=== PATIENT | male | born 1955 | race Caucasian/White ===

== ENCOUNTER 2016-12-27 23:46 | Inpatient (IN) ==
--- NOTE | 2016-12-27 23:56 | Emergency Department Note ---
Disposition Clinical Impression: Chest pain, Unstable angina, Afib Disposition: Admitted As Inpatient Condition: Fair Chest Pain HPI - General Chief Complaint: ED Chest Pain Stated Complaint: chest pain Time Seen by Provider: 12/27/16 23:50 Source: patient, EMS Mode of arrival: EMS Limitations: no limitations Vital Signs Reviewed: Yes Nursing Notes Reviewed: Yes - History of Present Illness HPI Narrative: 61-year-old male with history of hypertension, diabetes, triple bypass back in 2002 presents for evaluation of chest pain. Patient notes he was nonexertional started approximately 8:00 this evening. Notes that he had a full dose aspirin and took 3 of his nitroglycerin with some improvement. Notes that he is continuing to have chest pain.He has a pressure elevated and sitting on his chest with radiation as left arm. Denies any dyspnea. Does note some nausea but no vomiting or diaphoresis. Denies fevers or cough. - Related Data Home Medications Medication Instructions Recorded Confirmed Albuterol Sulfate [Albuterol 2 puff IH DAILY PRN 12/30/15 12/31/15 Inhaler] Aspirin [Lo-Dose Aspirin EC] 81 mg PO DAILY 12/30/15 12/31/15 BuPROPion SR (12 HR) [Wellbutrin 150 mg PO BID 12/30/15 12/31/15 SR] Canagliflozin [Invokana] 300 mg PO DAILY 12/30/15 12/31/15 Carbidopa/Levodopa 25/100 [Sinemet 1 each PO BID 12/30/15 12/31/15 25/100] Clopidogrel [Plavix] 75 mg PO DAILY 12/30/15 12/31/15 Fenofibrate [Lofibra] 160 mg PO DAILY 12/30/15 12/31/15 Fluticasone Propionate Nasal 50 mcg IH BID 12/30/15 12/31/15 [Flonase] Folic Acid 1 mg PO DAILY 12/30/15 12/31/15 Gabapentin [Neurontin] 1,200 mg PO TID 12/30/15 12/31/15 HYDROcodone/Acet 5/325 mg [[place] 1 tab PO TID PRN 12/30/15 12/31/15 5-325 mg] Isosorbide MONOnitrate (24 HR) 60 mg PO DAILY 12/30/15 12/31/15 [Imdur] Lisinopril [Zestril] 20 mg PO DAILY 12/30/15 12/31/15 Lutein 20 mg PO DAILY 12/30/15 12/31/15 Metoprolol [Lopressor] 100 mg PO BID 12/30/15 12/31/15 Montelukast [Singulair] 10 mg PO HS 12/30/15 12/31/15 Multivitamin [Multivitamins] 1 cap PO DAILY 12/30/15 12/31/15 Niacin [Niaspan] 500 mg PO BID 12/30/15 12/31/15 Nitroglycerin [Nitrostat] 0.4 mg SL Q5M PRN 12/30/15 12/31/15 Pramipexole [Mirapex] 1 mg PO TID 12/30/15 12/31/15 Ranolazine [Ranexa] 1,000 mg PO BID 12/30/15 12/31/15 Rivaroxaban [Xarelto] 20 mg PO DAILY 12/30/15 12/31/15 Sertraline [Zoloft] 100 mg PO DAILY 12/30/15 12/31/15 diazePAM [Valium] 2 mg PO HS 12/30/15 12/31/15 hydroCHLOROthiazide 25 mg PO DAILY 12/30/15 12/31/15 [Hydrochlorothiazide] Previous Rx's Medication Instructions Recorded Insulin ASPART [Novolog Flexpen] 0 unit SQ ACHS #0 12/31/15 Insulin DETEMIR [Levemir Flextouch] 25 unit SQ BID #0 12/31/15 Levofloxacin [Levaquin] 250 mg PO DAILY #5 tablet 12/31/15 Rosuvastatin [Crestor] 40 mg PO HS #30 tablet 12/31/15 metFORMIN [Glucophage] 500 mg PO BIDWM #60 tablet 12/31/15 Amoxicillin 875 mg PO BID #20 tablet 11/20/16 Azithromycin [Zithromax] 0 tab PO DAILY #6 tablet 11/20/16 Promethazine/Codeine 5 ml PO Q8HR PRN #120 ml 11/20/16 [Phenergan/Codeine] Allergies Allergy/AdvReac Type Severity Reaction Status Date / Time amlodipine [From Norvasc] AdvReac See Verified 12/30/15 19:09 Comments loratadine [From Claritin] AdvReac See Verified 08/11/15 10:05 Comments All systems ED: reviewed and negative except as stated. Constitutional: Reports: as per HPI. Denies: fever Eyes: Reports: as per HPI ENT ED: Reports: as per HPI Cardiovascular: Reports: as per HPI, chest pain Respiratory: Reports: as per HPI. Denies: cough, dyspnea Gastrointestinal: Reports: as per HPI, nausea. Denies: abdominal pain Genitourinary: Reports: as per HPI Musculoskeletal: Reports: as per HPI Integumentary: Reports: as per HPI Neurological: Reports: as per HPI Psychiatric: Reports: as per HPI Endocrine: Reports: as per HPI Hematological/Lymphatic: Reports: as per HPI Allergic/Immunologic: Reports: as per HPI Chest Pain PMH - Past Medical History Medical history: Reports: arthritis, asthma, atrial fibrillation, coronary artery disease, diabetes, hyperlipidemia, hypertension, myocardial infarction, other Surgical history: Reports: angioplasty/stent, coronary bypass (CABG), herniorrhaphy, knee replacement, orthopedic, other, other Psychiatric history: Reports: depression - Social History Smoking Status: Never smoker Alcohol use: Reports: occasionally Drug use: Reports: none Physical Exam - General Limitations: no limitations General appearance: alert, in no apparent distress - Head Head exam: atraumatic, normocephalic, normal inspection - Eye Eye exam: Present: normal appearance, PERRL, EOMI - ENT ENT exam: normal exam, mucous membranes moist - Neck Neck exam: Present: normal inspection - Chest Chest inspection: Present: normal inspection, symmetric chest wall rise - Respiratory Respiratory exam: Present: normal lung sounds bilaterally. Absent: respiratory distress - Cardiovascular Cardiovascular exam: Present: regular rate, normal rhythm. Absent: systolic murmur - Abdominal Exam Abdominal exam: Present: soft, Non-Tender. Absent: guarding, rebound - Extremities Exam Extremities exam: Present: normal inspection. Absent: pedal edema - Back Exam Back exam: Present: normal inspection. Absent: tenderness - Neurological Exam Neurological exam: Present: alert, oriented X3, CN II-XII intact - Skin Skin exam: Present: warm, dry, intact, normal color Course Course Narrative: Patient seen and examined. Patient does have a concerning history as well as story. Patient initially KG shows isolated ST elevation in lead 3 of [address] depression 1 and aVL. Patient's getting nitroglycerin. Does note acute changes from old EKG in 2016. We will discuss with cardiology interventional. Patient will get a cardiac evaluation including troponin as well as chest x-ray and labs. Symptomatically with IV fluids and nitroglycerin. - Reevaluation(s) Reevaluation #1: Notes slight decrease in pain following one nitroglycerin. We will continue to monitor progress. Attempting to page interventional cardiology. Time: 00:18 Reevaluation #2: Repeat EKG shows sinus rhythm with less ST depression in [address] elevation in lead 3. T-wave flattening in V5 and V6. Time: 00:27 Reevaluation #3: Patient's heart rate went into A. fib with a rate of 140s. Patient's receiving Lopressor as well as fluids. Blood pressure stable. Time: 00:52 Additional Reevaluation(s): 0122: Patient is updated on plan of care. All questions are answered bedside. - Consultations Consultation #1: Dr. Hughes said doesn't meet STEMI criteria. Recommend treatment medically. Heparin. Patient dates that he has not been taking his medications including his relative in his metoprolol. Time: 00:32 Vital Signs Temperature 0 F L 12/27/16 23:51 Pulse Rate 97 12/27/16 23:51 Respiratory Rate 20 12/27/16 23:51 Blood Pressure 194/112 12/27/16 23:51 O2 Sat by Pulse Oximetry 99 12/27/16 23:51 Temperature 0 F L 12/27/16 23:51 Pulse Rate 116 12/28/16 01:46 Respiratory Rate 20 12/28/16 01:46 Blood Pressure 154/91 12/28/16 01:46 O2 Sat by Pulse Oximetry 98 12/28/16 01:46 Oxygen Delivery Oxygen Delivery Room Air Chest Pain - MDM Narrative Medical decision making narrative: 61-year-old male with history of coronary artery disease presents for evaluation of chest pain. Patient did present with a concerning history. Patient also has risk factors for ACS. Patient was given 3 nitroglycerin as well as full dose aspirin prehospital. Patient's repeat nitro trial in the emergency department. Patient did have EKG changes that were concerning for ischemia. Did consult interventional cardiology who recommended heparinizing. Patient had repeat EKGs. Patient's initial troponin was negative. Patient is not taking his Xarelto as instructed and also has not been taking his metoprolol. Patient did go into A. fib with a rapid rate in the emergency department. Patient will be heparinized. Rate control with low-dose labetalol. Patient will be admitted to hospice or further care and monitoring. - Lab Data Lab results reviewed: Yes I reviewed the patient's lab results. Result diagrams: 12/28/16 00:08 12/28/16 00:08 Lab Results 12/28/16 12/28/16 12/28/16 Range/Units 00:08 00:08 00:08 WBC 11.3 H (4.3-11.1) K/mcL RBC 4.97 (4.19-5.50) M/mcL Hgb 14.5 (12.9-16.9) g/dL Hct 43.0 (37.5-50.1) % MCV 86.5 (83.0-100.0) fL MCH 29.2 (28.0-33.3) pg MCHC 33.7 (31.6-35.5) g/dL RDW 12.6 (11.5-14.5) % Plt Count 256 (140-400) K/mcL MPV 10.6 (9.4-12.4) fL Immature Gran % 0.5 (0-4) % Seg Neutrophils % 78.9 % Lymphocytes % 14.3 % Monocytes % 5.7 % Eosinophils % 0.2 % Basophils % 0.4 % Neutrophils # 8.9 (1.6-8.9) K/mcL Lymphocytes # 1.6 (0.6-4.6) K/mcL Monocytes # 0.7 (0.0-1.3) K/mcL Eosinophils # 0.0 (0.0-0.6) K/mcL Basophils # 0.0 (0.0-0.2) K/mcL PT (9.4-12.1) Seconds INR APTT (26.0-36.0) Seconds Sodium 133 L (136-145) mEq/L Potassium 3.8 (3.5-4.5) mEq/L Chloride 102 (98-109) mEq/L Carbon Dioxide 19 (19-29) mEq/L BUN 19 (8-26) mg/dL Creatinine 0.94 (0.72-1.25) mg/dL Est GFR ( Amer) > 60 (> 60) Est GFR (Non-Af Amer) > 60 (> 60) BUN/Creatinine Ratio 20 (6-26) Glucose 331 H (70-99) mg/dL Calculated Osmolality 291 (280-300) Calcium 9.2 (8.6-10.8) mg/dL Troponin I (0-0.03) ng/mL B-Natriuretic Peptide 35 (0-100) pg/mL 12/28/16 12/28/16 Range/Units 00:08 00:08 WBC (4.3-11.1) K/mcL RBC (4.19-5.50) M/mcL Hgb (12.9-16.9) g/dL Hct (37.5-50.1) % MCV (83.0-100.0) fL MCH (28.0-33.3) pg MCHC (31.6-35.5) g/dL RDW (11.5-14.5) % Plt Count (140-400) K/mcL MPV (9.4-12.4) fL Immature Gran % (0-4) % Seg Neutrophils % % Lymphocytes % % Monocytes % % Eosinophils % % Basophils % % Neutrophils # (1.6-8.9) K/mcL Lymphocytes # (0.6-4.6) K/mcL Monocytes # (0.0-1.3) K/mcL Eosinophils # (0.0-0.6) K/mcL Basophils # (0.0-0.2) K/mcL PT 10.8 (9.4-12.1) Seconds INR 1.0 APTT 27.7 (26.0-36.0) Seconds Sodium (136-145) mEq/L Potassium (3.5-4.5) mEq/L Chloride (98-109) mEq/L Carbon Dioxide (19-29) mEq/L BUN (8-26) mg/dL Creatinine (0.72-1.25) mg/dL Est GFR ( Amer) (> 60) Est GFR (Non-Af Amer) (> 60) BUN/Creatinine Ratio (6-26) Glucose (70-99) mg/dL Calculated Osmolality (280-300) Calcium (8.6-10.8) mg/dL Troponin I 0.02 (0-0.03) ng/mL B-Natriuretic Peptide (0-100) pg/mL - Radiology Data Radiology results reviewed: Yes I reviewed the patient's radiology results. Chest X-Ray 12/27/16 23:53 IMPRESSION: 1. No focal airspace disease. D/ / Beto Linton MD / Beto Linton MD Interpreting Provider: Beto Linton MD - EKG Data EKG attestation: Yes I reviewed and interpreted this EKG. EKG shows normal: sinus rhythm Rate: normal Rhythm: NSR [place]/QRS: normal ST segment elevation in: III ST segment depression in: I, aVL T wave inversions noted in: v5 (T-wave flattening), v6 (T-wave flattening) When compared to previous EKG there are: changes noted (2015) Heart Score - Score History: Highly Suspicious EKG: Significant ST-Depression Age: 45-65 Risk Factors: Equal/Greater than 3 risk factor or history of atherosclerotic disease Troponin: Less than normal limit HEART Score Total: 7 Critical Care Time Critical Care Time: Yes Total Critical Care Time: 40 Attestation: Critical care performed: Time is exclusive of separately billable procedures. Time includes: direct patient care, patient reassessment, coordination of patient care, interpretation of data (laboratory data, radiology data, and respiratory data), review of patient's medical records, medical consultation and documentation of patient care. Procedures included in critical care time: Procedures excluded from critical care time: S.B.A.R. - S.B.A.R. Situation: Demographics Background: Presenting Complaint Assessment: Vital Signs, Course and respsone to treatment, Patient/Family Expectation Recommendation: Barrier(s) to disposition, Recommendation based on pending studies, treatments, or consults S.B.A.R. Report Given to: Dr.Berko VoBConstantine Repor Time: 00:55 Attestation Statement - Attestation Attestation: I, Corbin Wang MD, personally evaluated this patient and discussed their management with the resident physician. I reviewed the resident's note and agree with the documented findings, medical decision making, and plan of care. 61-year-old male with prior cardiac history presents with a complaint of substernal chest pain which started approximately 4 hours prior to arrival. Onset was at rest. He had partial relief with nitroglycerin temporarily and then the pain returned. Some nausea with the pain. Some shortness of breath and mild diaphoresis. Patient has had an MN in the past and also CABG. He rated the pain a 7 out of 10 at the worst. He continues to have pain on arrival here the emergency department. On examination patient is a well-developed well-nourished male in no acute distress but does appear to be in moderate discomfort. He is alert and oriented 3. There is no cyanosis or diaphoresis. Nontender to palpation. Breath sounds are clear and equal bilaterally. Heart regular rate and rhythm. Abdomen is soft and nontender with normal bowel sounds. Trace pedal edema. Initial EKG shows ST elevation in lead [address] depression in lead 1 and aVL with flattened T waves in V5 and V6. I discussed the EKG findings and history with the interventionalists, Dr. Hughes, and he agrees that patient does not meet STEMI criteria and recommended admission and medical treatment at this time. A repeat EKG obtained approximately 20 minutes after the initial EKG showed slight improvement in the initial changes. Chest x-ray was negative. Labs reviewed. Troponin 0.02. Patient was placed on a heparin infusion. The hospitalist, Dr. Rendon, was consulted and accepted admission of the patient.
[2016-12-28] MEDS: Nitroglycerin 0.4 MG TAB.SUBL SL ONE ×2 (00:11→00:19)
[2016-12-28 00:20] LABS: Basophils % 0.4 %; Eosinophils % 0.2 %; Hemoglobin 14.5 g/dL (12.9-16.9); Immature Granulocytes % 0.5 % (0-4); Lymphocytes # 1.6 K/mcL (0.6-4.6); Lymphocytes % 14.3 %; Mean Corpuscular HGB Conc 33.7 g/dL (31.6-35.5); Mean Corpuscular Hemoglobin 29.2 pg (28.0-33.3); Mean Corpuscular Volume 86.5 fL (83.0-100.0); Mean Platelet Volume 10.6 fL (9.4-12.4); Monocytes # 0.7 K/mcL (0.0-1.3); Monocytes % 5.7 %; Neutrophils # 8.9 K/mcL (1.6-8.9); Platelet Count 256 K/mcL (140-400); Red Blood Count 4.97 M/mcL (4.19-5.50); Red Cell Distribution Width 12.6 % (11.5-14.5); Segmented Neutrophils % 78.9 %
[2016-12-28 00:32] LABS: BUN/Creatinine Ratio 20 (6-26); Blood Urea Nitrogen 19 mg/dL (8-26); Calcium 9.2 mg/dL (8.6-10.8); Carbon Dioxide 19 mEq/L (19-29); Chloride 102 mEq/L (98-109); Glucose 331 mg/dL (70-99); Osmolality,Calculated 291 (280-300); Potassium 3.8 mEq/L (3.5-4.5); Sodium 133 mEq/L (136-145); eGFR For African Americans > 60 (> 60); eGFR For Non-African Americans > 60 (> 60)
[2016-12-28] MEDS ORDERED: *HR* Heparin 5,000 UNIT/ML VIAL IVP ONE (00:50)
[2016-12-28] MEDS ORDERED: 0.9 % Sodium Chloride 500 ML IVC ONE (00:51)
[2016-12-28] MEDS ORDERED: *HR* Metoprolol 5 MG/5 ML VIAL IVP ONE (00:51)
[2016-12-28] MEDS ORDERED: Heparin 25,000 UNIT/500 ML D5W 25,000 UNIT/500 ML MLS IVC SCH (01:00)
[2016-12-28 01:15] LABS: Prothrombin Time 10.8 Seconds (9.4-12.1)
[2016-12-28 01:18] LABS: Activated Partial Thrombo Time 27.7 Seconds (26.0-36.0)
[2016-12-28] MEDS ORDERED: Dextrose Gel 15 GM PO PRN ×2 (01:37)
[2016-12-28] MEDS ORDERED: *HR* Dextrose 50 % in Water (Syg) 50 ML SYRINGE IVP PRN (01:37)
[2016-12-28] MEDS ORDERED: D5% in Water 1,000 ML IVC PRN (01:37)
[2016-12-28] MEDS ORDERED: Nitroglycerin 0.4 MG TAB.SUBL SL PRN (01:39)
[2016-12-28] MEDS ORDERED: Naloxone 0.4 MG/ML INJ IVP PRN (01:42)
--- NOTE | 2016-12-28 01:44 | Internal Med History&Physical ---
Date of Encounter: 12/28/16 Time of Encounter: 01:44 Assessment and Plan (1) Chest pain Current visit: Yes Status: Acute patient has a hx of CAD s/p triple CABG and has also had stents post CABG with stent in one of his grafts per , chart review reported findings and interventions from most recent cath in 08/2014, per his prior stress test had all been normal and yet he had MO, he presents today with unstable angina, he has been on long acting nitrates and ranexa at home(unclear if he was adherent with these), EKG showed some concerning changes, troponin was unremarkable, we will cycle troponin, telemonitor, make NPO post midnight and get cardiology to weigh in, Qualifiers: Chest pain type: precordial pain Qualified Code(s): R07.2 - Precordial pain (2) Afib Current visit: Yes Status: Chronic patient with a hx of paroxysmal AFIB now comes in with AFIB with RVR of 146 in the setting of unstable angina, there is reports of medication non adherence, trigger could be related to the aforementioned 2 reasons or dehydration from working in the sun late afternoon prior to presentation, we will resume home medications and monitor heart rate, will also consider IV drip if he does not convert Qualifiers: Atrial fibrillation type: paroxysmal Qualified Code(s): I48.0 - Paroxysmal atrial fibrillation (3) Hyperglycemia due to type 2 diabetes mellitus Current visit: Yes Status: Chronic patient has poorly controlled DM type 2 on insulin with medication non adherence who comes in with hyperglycemia in the 300's, his A1c from 08/2016 was 13.5%, we will continue basal bolus insulin regimen with FS Q6H whilst fasting, he was counseled at bedside, will repeat A1c on this admission Qualifiers: Diabetes mellitus senior care insulin use: with senior care use Qualified Code( s): E11.65 - Type 2 diabetes mellitus with hyperglycemia; Z79.4 - assisted ( current) use of insulin (4) HTN (hypertension) Current visit: Yes Status: Chronic hx of uncontrolled HTN due to medication non adherence vs chest pain or combination of the 2, we will continue home medications with BP monitoring Qualifiers: Hypertension type: essential hypertension Qualified Code(s): I10 - Essential (primary) hypertension Internal Medicine - H&P: HPI Chief complaint: Chest pain Admitted From: Emergency Dept Plans for Post Hospital Care: Home History of present illness: Mr. Foley is a 61 year old male with hx of CAD s/p CABG and multiple stents including a stent in one of the grafts who comes in with chest pain. He reports being in his usual state of health until the evening of presentation at around 8pm when he began to have chest pain that was dull achy in character, started after he had done some mowing between 5pm and 7:45pm. The was gradually worsening as time went by, it was a 4-5/10 in severity and achy like at inception, left sided in location, radiated to the left shoulder up to the elbow. It had no aggravating factors but at the height of the pain, when it became pressure like around 10pm, it was slightly relieved with 3 nitros and 324mg of aspirin but after a few minutes the pain worsened again. It was at this point that he called the Squad and he was brought to the ER of [place]. He reports that the pain became constant and had a sense of heaviness, it was associated with nausea but no vomiting, had dyspnea and feeling of apprehension but no lightheadedness, diaphoresis, or palpitations. In the ER upon presentation there was EKG changes(isolated ST elevation in lead III of about [address] depression in I and aVL, repeat EKG showed sinus rhythm with less ST depression in I and aVL, isolated ST elevation in lead III, T-wave flattening in V5 and V6) and he was in AFIB with RVR of 146. Cardiology was consulted in the ER and heparin drip was recommended. PAST MEDICAL HISTORY: Hypertension, hyperlipidemia, osteoarthritis, coronary artery disease status post bypass grafting and numerous stents. Parkinson disease, type 2 diabetes, which is poorly controlled, depression, obstructive sleep apnea on CPAP set at 9. Atrial fibrillation s/p cardioversion in 2002. Cath report from 08/2014 Drug-Eluting Stent placement in the Left Main to Proximal Circumflex. Drug-Eluting Stent placement in the proximal OM2. Drug-Eluting Stent placement in the mid RCA. S/P CABG 2 of 3 patent bypass grafts. previous stent in Mid RCA with severe in-stent stenosis. 99% distal LM and 99% OM2 stenosis. Patent BAGLEY to LAD with sequential to Diagonal. Lesion Findings/Interventions * Left Main Coronary Artery 99% stenosis in the LMCA. * Left Anterior Descending 99% stenosis in the Proximal LAD. 100% stenosis in the Mid LAD. * Circumflex 25 mm long, 99% stenosis in the Proximal Circumflex. 25 mm long, 99% stenosis in the 2nd Marginal * Right Coronary Artery 14 mm long, 80% stenosis in the Mid RCA Grafts left internal mammary graft to the Mid LAD with sequential to Diagonal is patent PAST SURGICAL HISTORY: Total left knee in 1999, four to five cardiac catheterizations over the years, right shoulder surgery, coronary artery bypass grafting x3 vessels in 2002, right knee surgery, left knee surgery x3. SOCIAL HISTORY: He is a former smoker. He quit smoking over 20 years ago. He occasionally consumes alcohol. Denies any illicit drugs. He is and lives with his family. FAMILY HISTORY: Father is . He had his first MO at age 46. Mother had no significant health issues. Past Med Surg Social Fam HX - Past Medical History Medical history: arthritis, asthma, atrial fibrillation, coronary artery disease , diabetes, hyperlipidemia, hypertension, myocardial infarction, other Psychiatric history: depression - Past Surgical History Surgical History: angioplasty/stent, coronary bypass (CABG), herniorrhaphy, knee replacement, orthopedic, other, other - Social History Smoking Status: Former smoker Packs per day: 1ppd but quit about 29 years ago Smokeless Tobacco Status: No Alcohol use: occasionally Drug use: none Current living situation: Home - Independent, With Family Activity Level: Independent ambulation - Family History Father Hx Family Cardiac Disorders: Yes (mi) Internal Medicine - H&P: Meds Albuterol Sulfate [Albuterol Inhaler] 2 puff IH DAILY PRN 12/30/15 [History] Aspirin [Lo-Dose Aspirin EC] 81 mg PO DAILY 12/30/15 [History] Fluticasone Propionate Nasal [Flonase] 50 mcg IH BID 12/30/15 [History] HYDROcodone/Acet 5/325 mg [[place] 5-325 mg] 1 tab PO TID PRN 12/30/15 [History] Metoprolol [Lopressor] 100 mg PO BID 12/30/15 [History] Multivitamin [Multivitamins] 1 cap PO DAILY 12/30/15 [History] Niacin [Niaspan] 500 mg PO BID 12/30/15 [History] Nitroglycerin [Nitrostat] 0.4 mg SL Q5M PRN 12/30/15 [History] Ranolazine [Ranexa] 500 mg PO BID 12/30/15 [History] Rivaroxaban [Xarelto] 20 mg PO DAILY 12/30/15 [History] hydroCHLOROthiazide [Hydrochlorothiazide] 25 mg PO DAILY 12/30/15 [History] Insulin ASPART [Novolog Flexpen] 0 unit SQ ACHS #0 12/31/15 [Rx] Rosuvastatin [Crestor] 40 mg PO HS #30 tablet 12/31/15 [Rx] Allergies amlodipine [From Norvasc] Adverse Reaction (Verified 12/30/15 19:09) See Comments States unable to walk loratadine [From Claritin] Adverse Reaction (Verified 08/11/15 10:05) See Comments states he acted crazy for 3 days All Systems PM: A 10-system review of systems was performed and is negative for pertinent findings except as documented above in the HPI. - Constitutional Vitals: Temp Pulse Resp BP Pulse Ox 0 F L 146 20 160/123 96 12/27/16 23:51 12/28/16 01:15 12/28/16 01:15 12/28/16 01:15 12/28/16 01:15 GENERAL: Adult male, sitting up in bed, Alert, not in acute distress, HEENT: NC/AT, EOMI, PERRLA, anicteric sclera, normal conjunctiva, supple, clear nares, moist mucous membranes, RESP: Lungs are clear to auscultation bilaterally, good AE bilaterally, No crackles or wheeze CARDIO: Normal hearts sounds; irregularly irregular heart sounds, with no murmurs, no JVD, no ankle edema GI: Soft, full, no tenderness, no organomegaly felt, normal bowel sounds heard MUSCULOSKELETAL: grossly normal movements bilaterally, no deformities noted, NEUROLOGIC: CN 2-12 intact grossly. No gross motor/sensory deficit appreciated, PSYCHIATRY: AAO x 3. Mood is fair, SKIN: no skin rash or ulcers noted Internal Med - H&P Results - Labs CBC & Chem 7: 12/28/16 00:08 12/28/16 00:08 - EKG Data -: EKG Interpreted by Myself - Diagnostic Studies Chest x-ray Status: image reviewed by me
[2016-12-28] MEDS: diazePAM 2 MG TABLET PO SCH ×2 (02:53→22:18)
[2016-12-28] MEDS ORDERED: *HR* Labetalol 20 MG/4 ML SYRINGE IVP PRN (04:09)
[2016-12-28] MEDS: Insulin LISPRO 300 UNITS/3 ML VIAL SQ SCH ×3 (06:35→18:58)
[2016-12-28 07:59] LABS: Hemoglobin A1C 12.6 %
[2016-12-28 08:01] LABS: BUN/Creatinine Ratio 21 (6-26); Blood Urea Nitrogen 15 mg/dL (8-26); Calcium 8.6 mg/dL (8.6-10.8); Carbon Dioxide 25 mEq/L (19-29); Chloride 102 mEq/L (98-109); Chol/HDL Ratio 8.6 (0-4.9); Cholesterol 320 mg/dL (< 200); Glucose 248 mg/dL (70-99); HDL Cholesterol 37 mg/dL (40-59); Magnesium 1.6 mg/dL (1.6-2.6); Osmolality,Calculated 287 (280-300); Phosphorous 4.3 mg/dL (2.3-4.7); Potassium 3.2 mEq/L (3.5-4.5); Sodium 134 mEq/L (136-145); Triglycerides 657 mg/dL (< 150); eGFR For African Americans > 60 (> 60); eGFR For Non-African Americans > 60 (> 60)
[2016-12-28] MEDS ORDERED: *HR* Heparin 5,000 UNIT/ML VIAL IVP PRN ×2 (08:22)
[2016-12-28] MEDS ORDERED: *HR* Morphine 2 MG/ML SYRINGE IVP PRN (08:29)
--- NOTE | 2016-12-28 10:06 | Cardiology Consult Note ---
Date of Encounter: 12/28/16 Time of Encounter: 08:30 Assessment and Plan (1) NSTEMI (non-ST elevated myocardial infarction) Current Visit: Yes Status: Acute Per cardiology: -Troponin 0.02, 1.53. -Patient admitted with chest pain. -Currently chest pain free. -ON asa, statin, beta rylie, imdur, ranexa, plavix, and heparin drip. -Significant CAD history. -Will consult cardiac rehab. -Will keep NPO for now, will plan for LHC. RIsks versus benefits of LHC explained to patient and family. Patient and family state understanding and agreeable to proceed with LHC. (2) Chest pain Current Visit: Yes Status: Acute Per cardiology: -Patient states started not feeling well while mowing grass and weed eating. -Chest pain intensified at home and he took ASA 325mg and 3 nitro. -Patient admitted to [facility]. -Currently chest pain free. -WIll continue to monitor. Qualifiers: Chest pain type: precordial pain Qualified Code(s): R07.2 - Precordial pain (3) CAD (coronary artery disease) Current Visit: Yes Status: Chronic Per cardiology: -Known CAD with CABG x3 2002 -Last LHC 2014 with 99% left main stenosis. 99% proximal LAD, 100% mid LAD, 99% proximal circumflex with SAMIR placed, 99% om2 with SAMIR placed, 80% mid RCA with SAMIR placed, BAGLEY to LAD patent. -ECho 01/14/16 with LVEF 55-60%, moderate concentric left ventricular hypertrophy , moderate diastolic dysfunction, mildly dilated left atrium, mild AR, mild NJ, all wall segments with normal motion. -Admitted to non-compliance with medications. However, states if he has to have intervention during LHC he would comply with medications. I educated patient on importance of medication compliance. -On asa, statin, beta rylie, imdur, ranexa, plavix, and heparin drip. -Further recommendations pending LHC. Qualifiers: Coronary Disease-Associated Artery/Lesion type: unspecified vessel or lesion type [place] vs. transplanted heart: [place] heart Associated angina: with unspecified angina Qualified Code(s): I25.119 - Atherosclerotic heart disease of [place] coronary artery with unspecified angina pectoris (4) Atrial fibrillation Current Visit: No Status: Chronic Per cardiology: -Known previous history of atrial fibrillation after CABG. -Not currently on anticoagulation. -Had previously taken xarelto. Denies bleeding or blood loss. -Telemetry reviewed with intermittent atrial fibrillation/flutter noted. -PMeni1acvx score 3 (HTN, DM, and vascular disease). Recommend intermediate manager anticoagulation. Patient agreeable for intermediate manager anticoagulation. Patient states he would be compliant with anticoagulation. Patient educated on increased risk of stroke if not taking anticoagulation. Patient and state understanding. Currently on heparin drip. -Average HR per telemetry 89. -On beta rylie and heparin drip. -Will start anticoagulation pending results of [facility]. Qualifiers: Atrial fibrillation type: chronic Qualified Code(s): I48.2 - Chronic atrial fibrillation (5) HTN (hypertension) Current Visit: Yes Status: Chronic Per cardiology: -Known history of HTN. -ON beta rylie and carmela inhibitor. -Patient reports non-compliance with medications. -Recommend given home medication -Recommend close monitoring of HR and BP as patient has been taking medications at home intermittently. . Qualifiers: Hypertension type: essential hypertension Qualified Code(s): I10 - Essential (primary) hypertension (6) Hyperlipidemia Current Visit: No Status: Chronic Per cardiology: -Known hyperlipidemia. -ON statin. -Patient reports non-compliance with medication. -Triglycerides 657, cholesterol 320, LDL unable to perform, HDL 36. -I stressed importance of medication compliance with patient. Qualifiers: Hyperlipidemia type: unspecified Qualified Code(s): E78.5 - Hyperlipidemia , unspecified Discussion w patient/family: The assessment and plan as outlined above was discussed with the patient and/or family members who expressed understanding and agreement. All questions were answered. Thank you for involving us in the care of your patient. Please call with any questions. Discussed and reviewed with History of Present Illness Consult date: 12/28/16 Requesting physician: Mitch Rendon Consult reason: CAD, S/P CABG, unstable angina Chief complaint: chest pain History of present illness: Mr. Foley is a 61 year old male with a relevant past medical history of CAD s/p CABG x3 2002 and multiple PCIs, MS, HTN, ANA, DM, hyperlipidemia, and atrial fibrillation. Patient reports he was at his families property mowing grass and weed eating when he felt "not right." Patient admits to having chest pain at that time. Patient states he got in his car and drove home. While at home, he states chest pain became unbearable and he took ASA 325mg and 3 nitro. Patient states pain was unrelieved by nitro and he had his call the squad. Patient states pain felt "like something sitting on my chest." Patient reports this pain is similar to previous MIs. Patient denies current chest pain. Patient states he has been non-compliant with his medications. Patient states he has been taking medications intermittently for the past few months. Past Med Surg Social Fam HX - Past Medical History Attestation: Yes The following information was validated with the patient. Source: patient, old records reviewed, obtained from family Medical history: arthritis, asthma, atrial fibrillation, coronary artery disease , diabetes, hyperlipidemia, hypertension, myocardial infarction, other Psychiatric history: depression - Past Surgical History Surgical History: angioplasty/stent, coronary bypass (CABG), herniorrhaphy, knee replacement, orthopedic, other, other - Social History Smoking Status: Former smoker Packs per day: 1ppd but quit about 29 years ago Smokeless Tobacco Status: No Alcohol use: occasionally Drug use: none - Family History Father Living Status: Age at : 46 Cause of : MS Hx Family Cardiac Disorders: Yes (mi) Medications and Allergies Albuterol Sulfate [Albuterol Inhaler] 2 puff IH DAILY PRN 12/30/15 [History] Aspirin [Lo-Dose Aspirin EC] 81 mg PO DAILY 12/30/15 [History] Fluticasone Propionate Nasal [Flonase] 1 spray IH BID 12/30/15 [History] HYDROcodone/Acet 5/325 mg [Victor 5-325 mg] 1 tab PO TID PRN 12/30/15 [History] Metoprolol [Lopressor] 100 mg PO BID 12/30/15 [History] Multivitamin [Multivitamins] 1 cap PO DAILY 12/30/15 [History] Niacin [Niaspan] 500 mg PO BID 12/30/15 [History] Nitroglycerin [Nitrostat] 0.4 mg SL Q5M PRN 12/30/15 [History] Ranolazine [Ranexa] 500 mg PO BID 12/30/15 [History] Rivaroxaban [Xarelto] 20 mg PO DAILY 12/30/15 [History] hydroCHLOROthiazide [Hydrochlorothiazide] 25 mg PO DAILY 12/30/15 [History] Insulin ASPART [Novolog Flexpen] 0 unit SQ ACHS #0 12/31/15 [Rx] Rosuvastatin [Crestor] 40 mg PO HS #30 tablet 12/31/15 [Rx] Allergies amlodipine [From Norvasc] Adverse Reaction (Verified 12/30/15 19:09) See Comments States unable to walk loratadine [From Claritin] Adverse Reaction (Verified 08/11/15 10:05) See Comments states he acted crazy for 3 days All Systems Review: A 10-system review of systems was performed and is negative for pertinent findings except as documented above in the HPI. - Cardiovascular Cardiovascular: as per HPI, chest pain at rest, chest pain with exertion Physical Examination Vital Signs, Last 4 Hours Temp Pulse Resp BP Pulse Ox 12/28/16 07:38 98.4 F 69 16 108/71 97 General: Conversant, No Apparent Distress HEENT: Atraumatic, Normocephaly, Mucus Membranes Moist Neck: No JVD, Normal carotid pulses Cardiac: Reg Rate and Rhythm, Normal S1 and S2, No Murmur Lungs: Normal Breath Sounds, No Wheeze, Rales, Rhonchi Neuro: Alert and responsive, No focal deficits noted Abdomen: Soft, Non-Tender Skin: No rashes noted on visualized skin Musculoskeletal: No Chest Wall Tenderness Extremities: No Clubbing, No Cyanosis, No Edema, Normal Pulses Results 12/28/16 00:08 12/28/16 07:15 Lab Results Impressions Chest X-Ray 12/27/16 23:53 IMPRESSION: 1. No focal airspace disease. D/ / Beto Linton MD / Beto Linton MD Interpreting Provider: Beto Linton MD Active Medications Aspirin (Aspirin Ec) 81 mg PO DAILY MARIA GUADALUPE Stop: 06/29/17 09:01 Bupropion HCl (Wellbutrin Sr) 150 mg PO BID [facility] GUADALUPE Stop: 06/29/17 09:01 Carbidopa/Levodopa (Sinemet) 1 each PO BID [facility] GUADALUPE Stop: 06/29/17 09:01 Clopidogrel Bisulfate (Plavix) 75 mg PO DAILY [facility] GUADALUPE Stop: 06/29/17 09:01 Dextrose/Water (Dextrose 50% (Syg)) 25 ml IVP AD PRN PRN Reason: Hypoglycemia Stop: 06/29/17 01:38 Diazepam (Valium) 2 mg PO HS [facility] Stop: 06/29/17 01:46 Last Admin: 12/28/16 02:53 Dose: 2 mg Fenofibrate (Tricor) 162 mg PO DAILY MARIA GUADALUPE Stop: 06/29/17 09:01 Gabapentin (Neurontin) 1,200 mg PO TID MARIA GUADALUPE Stop: 06/29/17 09:01 Glucagon (Glucagen) 1 mg IM ONCE PRN PRN Reason: Hypoglycemia Stop: 06/29/17 01:38 Glucose (Gluctose) 15 gm PO ONCE PRN PRN Reason: Hypoglycemia Stop: 06/29/17 01:38 Glucose (Gluctose) 30 gm PO ONCE PRN PRN Reason: Hypoglycemia Stop: 06/29/17 01:38 Heparin Sodium (Porcine) (Heparin) 6,900 unit 70 unit/kg (6900 unit) IVP Q6HR PRN PRN Reason: SEE COMMENTS Stop: 06/29/17 08:23 Heparin Sodium (Porcine) (Heparin) 3,400 unit 35 unit/kg (3400 unit) IVP Q6H PRN PRN Reason: SEE COMMENTS Stop: 06/29/17 08:23 Last Admin: 12/28/16 08:53 Dose: 3,400 unit Hydrochlorothiazide (Hydrochlorothiazide) 25 mg PO DAILY MARIA GUADALUPE PRN Reason: Protocol Stop: 06/29/17 09:01 Heparin Sodium/Dextrose (Heparin 25,000 Unit/500 Ml D5w) 25,000 unit in 500 mls @ 19.958 mls/hr IVC .Q24H MARIA GUADALUPE; 10 UNITS/KG/HR PRN Reason: Protocol Stop: 06/29/17 01:01 Last Titration: 12/28/16 08:12 Dose: 11.97 units/kg/hr, 23.9 mls/hr Dextrose (Dextrose 5%) 1,000 mls @ 100 mls/hr IVC .Q10H PRN PRN Reason: HYPOGLYCEMIA Stop: 06/29/17 01:38 Insulin Human Lispro (Humalog) 0 units SQ Q6HR MARIA GUADALUPE PRN Reason: Protocol Stop: 06/29/17 06:01 Last Admin: 12/28/16 06:35 Dose: 8 units Isosorbide Mononitrate (Imdur) 60 mg PO DAILY [facility] Stop: 06/29/17 09:01 Labetalol HCl (Labetalol) 10 mg IVP Q1H PRN PRN Reason: SBP>180mmHg Stop: 06/29/17 04:10 Last Admin: 12/28/16 04:51 Dose: 10 mg Lisinopril (Zestril) 20 mg PO DAILY MARIA GUADALUPE PRN Reason: Protocol Stop: 06/29/17 09:01 Metoprolol Tartrate (Lopressor) 100 mg PO BID [facility] Stop: 06/29/17 09:01 Morphine Sulfate (Morphine Sulfate) 2 mg IVP Q4HR PRN PRN Reason: Chest Pain Stop: 06/29/17 08:30 Last Admin: 12/28/16 08:56 Dose: 2 mg Naloxone HCl (Narcan) 0.4 mg IVP Q2MIN PRN PRN Reason: Opioid Reversal Stop: 06/29/17 01:43 Nitroglycerin (Nitroglycerin) 0.4 mg SL Q5M PRN PRN Reason: Chest Pain Stop: 06/29/17 01:40 Ranolazine (Ranexa) 1,000 mg PO BID [facility] Stop: 06/29/17 09:01 Rosuvastatin Calcium (Crestor) 40 mg PO HS [facility] Stop: 06/29/17 01:46 Last Admin: 12/28/16 02:53 Dose: 40 mg Sertraline HCl (Zoloft) 100 mg PO DAILY [facility] Stop: 06/29/17 09:01 Laboratory Tests 12/28/16 12/28/16 12/28/16 00:08 00:08 00:08 WBC 11.3 H Hgb 14.5 Potassium 3.8 Creatinine Hemoglobin A1c Troponin I 0.02 Triglycerides Cholesterol LDL Cholesterol, Calc HDL Cholesterol 12/28/16 12/28/16 12/28/16 07:15 07:15 07:15 WBC Hgb Potassium 3.2 L Creatinine 0.73 Hemoglobin A1c 12.6 H Troponin I 1.53 H* Triglycerides 657 H Cholesterol 320 H LDL Cholesterol, Calc TNP HDL Cholesterol 37 L - Imaging and Cardiology Chest Xray: report reviewed Echo: report reviewed Cardiac cath: report reviewed - EKG Interpretation EKG results cardiology: personally reviewed (ECG with Sinus rhythm, HR 98. ST elevation in lead III, ST depression in lead I. Incomplete bundle branch block.) , other (Telemetry reviewed with average HR 89. Intermittent SR, atrial fibrillation/flutter noted. PVCs and couplets noted.) Consult Discharge Plan - Plan Referrals: Deidra Lomax, RN MANAGER [Primary Care Provider] -
[2016-12-28] MEDS: Fenofibrate 54 MG TABLET PO SCH (10:55)
[2016-12-28] MEDS: Metoprolol 100 MG TABLET PO SCH ×2 (10:55→21:21)
[2016-12-28] MEDS: Ranolazine 500 MG TAB.ER.12H PO SCH ×2 (10:55→21:21)
[2016-12-28] MEDS: Isosorbide MONOnitrate (24 HR) 60 MG TAB.ER.24H PO SCH (10:55)
[2016-12-28] MEDS: Carbidopa/Levodopa 25/100 TABLET PO SCH ×2 (10:55→21:19)
[2016-12-28] MEDS: Aspirin Enteric Coated 81 MG Tablet PO SCH (10:55)
[2016-12-28] MEDS: hydroCHLOROthiazide 25 MG TABLET PO SCH (10:55)
[2016-12-28] MEDS: BuPROPion SR (12 HR) 150 MG TABLET PO SCH ×2 (10:56→21:19)
[2016-12-28] MEDS: Lisinopril 20 MG TABLET PO SCH (10:56)
[2016-12-28] MEDS: Gabapentin 400 MG CAPSULE PO SCH ×3 (10:57→21:19)
--- NOTE | 2016-12-28 12:06 | Pre-Sedation Evaluation ---
Pre-sedation evaluation - Pre-sedation checklist Date of procedure: 12/28/16 Procedure: [facility] Recent Vitals: Last Vital Signs Temp 98.4 F 12/28/16 11:52 Pulse 65 12/28/16 11:52 Resp 16 12/28/16 11:52 BP 114/69 12/28/16 11:52 Pulse Ox 93 12/28/16 11:52 H&P (including ROS) documented in medical record: Yes Previous reaction to sedatives/anesthetics: No Dietary Status: NPO after Midnight Dentition: No loose teeth or bridges ASA Classification *see protocol: CLASS II-Mild systemic disease Plan of Care: Pt appropriate candidate for procedure/moderate/conscious sedation , Risks/benefits of procedure/sedation discussed w/ patient/family
[2016-12-28] MEDS ORDERED: *HR* Heparin 10,000 UNIT/10 ML VIAL ONE (13:18)
[2016-12-28] MEDS ORDERED: Heparin 1,000 UNITS/500 mL NS 500 ML ONE (13:18)
[2016-12-28] MEDS ORDERED: Verapamil 5 MG/2 ML VIAL ONE (13:18)
[2016-12-28] MEDS ORDERED: Nitroglycerin 1,000 MCG/10 ML VIAL IV ONE (13:18)
[2016-12-28] MEDS ORDERED: 0.9 % Sodium Chloride 1,000 ML ONE ×2 (13:18→13:23)
[2016-12-28] MEDS ORDERED: *HR* Midazolam HCl 2 MG/2 ML VIAL ONE ×2 (13:23→13:35)
[2016-12-28] MEDS ORDERED: *HR* FentaNYL (PF) 100 MCG/2 ML VIAL ONE (13:23)
--- NOTE | 2016-12-28 15:08 | Invasive Diagnostic Lab Proc ---
Name: Chester Foley Date of Study: 12/28/2016 Date: 1955 Ht: 68.9in Medical Record#: [id number] Age: 61 Wt: 216.49lb Gender: Male BSA: 2.13 Order #: [id number] BMI: 32.07 Physicians Procedure Physician: Gabriele Hughes MD, [facility] Referring MD: Referring MD: Staff Name Position Time In Prema Orellana RN Research Instructor 01:31 PM Berenice Maynard RN Research Instructor 01:31 PM Eneida Ritchie RT (R) Scrub 01:31 PM Saba Rivera RT (R) Monitor 01:40 PM Indications Indication Non-Stemi Procedures Performed Procedure L HRT ART/GRFT ANGIO PRQ CARD SAMIR STENT W/ANGIO 1 VSL Pre-Procedure Checklist Informed consent is complete signed and on chart. H&P is on chart. ID band is on and ID verified with patient. Patient NPO for procedure The procedure was described for the patient and questions were answered. Blood Pressure: 114/69 ECG is on chart. Rhythm: NSR Plan of Care Patient will tolerate the procedure without complications. Adequate level of comfort will be maintained. Hemodynamics will remain stable Patient will recover from procedure without complications. Respiratory function will be maintained. Cardiac rhythm will remain stable. Patient temperature will be maintained. Patient and/or family have verbalized understanding of the procedure. Patient Education Chief Complaint/Reason for Test: Cardiac Cath Developmental Category: Adult (18-64 years) Developmentally Appropriate for Age: Yes Learning Barriers: None Education Needs: Procedure Education Method: Verbal Information Taught: Cardiac Cath Educational Evaluation: Able to repeat information Intravenous Access Time IV Size Location DC'd Fluid/Drip Rate Units RN 01:34 PM 18g 1 1/4" Patent On Arrival Lt Antecubital 0.9NaCl 25 ml/hr Prema Orellana RN 01:34 PM 18g 1 1/4" Patent On Arrival Rt Antecubital Allergies amlodipine loratadine Norvasc claritin Vital Signs Time BP (mmHg) HR (bpm) O2 Sat. RR (bpm) LOC 114 / 69 65 93 % 16 5 = Fully awake and oriented or at pre-proc level 01:30 PM / % 5 = Fully awake and oriented or at pre-proc level 01:30 PM / % 4 = Oriented but drowsy 01:45 PM / % 4 = Oriented but drowsy 02:01 PM / % 4 = Oriented but drowsy 01:38 PM 107 / 52 62 97 % 10 01:43 PM 94 / 48 66 86 % 16 01:48 PM 108 / 42 64 94 % 13 01:53 PM 105 / 55 64 98 % 14 01:58 PM 114 / 62 120 98 % 13 02:03 PM 111 / 52 67 98 % 13 02:08 PM 119 / 49 68 98 % 17 02:13 PM 122 / 41 68 98 % 15 02:18 PM 122 / 54 67 98 % 13 02:23 PM 129 / 52 68 99 % 17 02:28 PM 138 / 61 68 98 % 16 02:33 PM 136 / 71 67 99 % 17 02:38 PM 127 / 48 69 98 % 21 02:44 PM 130 / 53 68 98 % 19 Procedural Medications Time Medication Dose Units Method Given By 01:39 PM Oxygen 2 L/min nasal cannula Prema Orellana RN 01:39 PM Versed 3 mg Intravenous Prema Orellana RN 01:39 PM Fentanyl 75 mcg Intravenous Prema Orellana RN 01:42 PM Oxygen 4 L/min nasal cannula Prema Orellana RN 01:45 PM Oxygen 6 L/min simple face mask Prema Orellana RN 01:50 PM Lidocaine 2% 19 ml Subcutaneous Gabriele Hughes MD, FACC 02:05 PM Heparin 4000 units Intravenous Berenice Maynard RN 02:36 PM Nitroglycerin 200 mcg Intracoronary Gabriele Hughes MD 02:40 PM Nitroglycerin 200 mcg Intracoronary Gabriele Hughes MD 02:40 PM Heparin 4000 units Intravenous Berenice Maynard RN 02:43 PM Plavix 300 mg Orally Berenice Maynard RN ASA Classification: CLASS II- Mild systemic disease (i.e. well-controlled diabetes, hypertension, asthma, cigarette smoking) Marcel Score Preprocedure Postprocedure Activity 2- Moves 4 extremities sustained head lift Activity 2- Moves 4 extremities sustained head lift Circulation 2- SBP +/= 20 points of pre-anesthetic level Circulation 2- SBP +/= 20 points of pre-anesthetic level Consciousness 2- Awake and alert oriented x 3 Consciousness 2- Awake and alert oriented x 3 O2 Saturation 2- Able to maintain O2 satruation of 92% on room air O2 Saturation 2- Able to maintain O2 satruation of 92% on room air Respiratory 2- Able to deep breathe and cough well Respiratory 2- Able to deep breathe and cough well Total Score 10 Total Score 10 Contrast Agent: Isovue Diagnostic Contrast: 105 ml Total Contrast: 105 ml Fluoro Dose: 803 mGy Activated Clotting Time Time Seconds to Clot 02:40 PM 178 Procedure Log Time Note Enter By 01:30 PM [facility] arrived [facility] 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 [facility] 13:30 [email or web address] Patient charges- Angio tray pack, Navilyst 3mm J, Pulse Oximetry and ACIST tubing and transducer [email or web address] 01:30 PM Time: 13:30 Patient comfortable and pain free: Yes [facility] :30 PM Time: 13:30LOC: 5 = Fully awake and oriented or at pre-proc [email or web address] 01[facility] PM Case Delayed No [facility] :31 PM Prema Orellana RN Position: Research Instructor Time in: :31 [facility] 01:31 PM Berenice Maynard RN Position: Research Instructor Time in: 13:31 [facility] 01:32 PM Eneida Ritchie RT (R) Position: Scrub Time in: 13:31 3 :33 PM Physician arrived 13:33 [email or web address] 01:33 PM ASA Class CLASS II- Mild systemic disease (i.e. well-controlled diabetes, hypertension, asthma, cigarette smoking) [facility] :33 PM Misbah and don completed [facility] 01:33 PM Sign in performed according to hospital policy. elle 01:33 PM Procedure start 13:33 [facility] 01:37 PM CathStat 01:37 PM Vitals capture started with the following parameters, Patient=Adult, Interval=5 min, Initial Zcoztgcz=696 mmHg, Deflation Rate=5 mmHg, Cuff placed on Left Arm 01:37 PM Recorded ECG: HR=64 Condition=Condition 1 01:38 PM HR=62 bpm, XHMN=696/52 mmhg, SpO2=97.0 %, Resp=10 B/min, Comment=NSR 01:39 PM Clinical Presentation: Non-STEMI elle:39 PM Time: 13:39 Oxygen on at 2 L/min per nasal cannula by Prema Orellana RN [email or web address] :39 PM Time: 13:39 Versed 3 mg Intravenous Given by Prema Orellana RN [email or web address] 01:39 PM Time: 13:39 Fentanyl 75 mcg Intravenous Given by Prema Orellana RN [email or web address] 01:40 PM Saba Rivera RT (R) Position: Monitor Time in: 13:40 twilson 01:42 PM Time: 13:42 Oxygen on at 4 L/min per nasal cannula by Prema Orellana RN twilson 01:43 PM HR=66 bpm, NIBP=94/48 mmhg, SpO2=86.0 %, Resp=16 B/min, Comment=NSR 01:44 PM Pressure channel 1 zeroed. 01:45 PM Time: 13:45 Oxygen on at 6 L/min per simple face mask by Prema Orellana RN twilson :45 PM Time: 13:30LOC: 4 = Oriented but drowsy twilson 01:45 PM Time: 13:30 Patient comfortable and pain free: Yes twilson 01:47 PM NIBP STAT measurement started. 01:48 PM HR=64 bpm, SLJK=579/42 mmhg, SpO2=94.0 %, Resp=13 B/min, Comment=NSR 01:49 PM Time out performed according to hospital policy twilson 01:51 PM Time: 13:50 19 ml Lidocaine 2% to right groin Subcutaneous Given by Gabriele Hughes MD, [facility] twilson 01:52 PM Access obtained by percutaneous puncture. 6Fr 10cm Terumo Amelia sheath placed in right Femoral artery. [id number] twilson 01:52 PM 5Fr FL 4 catheter inserted over the wire [facility] twilson 01:52 PM Wire removed twilson 01:52 PM Left ANÍBAL to the LAD angio performed in multiple views. twilson 01:52 PM Recorded Pressure: Ao, HR=62, Condition=Condition 1 (Aorta) Ao 71/50/60 01:53 PM HR=64 bpm, BQQL=033/55 mmhg, SpO2=98.0 %, Resp=14 B/min, Comment=NSR 01:53 PM Wire reinserted twilson 01:53 PM Catheter repositioned and wire removed. twilson 01:54 PM LCA angiography performed in multiple views. twilson 01:54 PM Recorded Pressure: Ao, HR=64, Condition=Condition 1 (Aorta) Ao 73/52/63 01:55 PM Lesion found in Proximal LAD. Pre Stenosis: 100 Pre CORTEZ Flow: twilson 01:55 PM Proximal Left Anterior Descending Coronary Artery with 100% stenosis. If graft is supplying this territory, 0 % stenosis. twilson 01:56 PM Wire reinserted twilson 01:56 PM Catheter removed twilson :56 PM 5Fr FR 4 catheter inserted over the wire DN twilson :56 PM Wire removed twilson :57 PM RCA angiography performed in multiple views. twilson 01:57 PM Recorded Pressure: Ao, HR=72, Condition=Condition 1 (Aorta) Ao 79/60/69 01:57 PM Recorded Pressure: Ao, VX=612, Condition=Condition 1 (Aorta) Ao 74/61/68 01:58 PM UP=719 bpm, BXZF=463/62 mmhg, SpO2=98.0 %, Resp=13 B/min 01:58 PM Wire reinserted twilson :59 PM Catheter removed twilson :59 PM 5Fr Pigtail catheter inserted over the wire [facility] twilson :59 PM Catheter selectively placed in left ventricle twilson :59 PM Wire removed twilson :59 PM Pressure channel 1 zero failed. :59 PM Pressure channel 1 zeroed. 02:00 PM Bolus angiogram of left Ventricle complete: 12 ml/sec for a total of 30 mls twilson 02:00 PM Recorded Pressure: LV, SB=203, Condition=Condition 1 (Left Ventricle) LV 94/4/12 02:01 PM Time: 13:45 Patient comfortable and pain free: Yes tw 02: PM Time: 13:45LOC: 4 = Oriented but drowsy twilson 02:01 PM Lesion found in Mid LAD. Pre Stenosis: 70 Pre CORTEZ Flow: tw 02: PM Recorded Pressure: LV, Ao, OI=602, Condition=Condition 1 (Left Ventricle) LV 80/11/11, (Aorta) Ao 85/62/71 02:03 PM HR=67 bpm, MVME=858/52 mmhg, SpO2=98.0 %, Resp=13 B/min, Comment=NSR 02:04 PM Wire reinserted twilson 02:04 PM Catheter removed twilson 02:04 PM Preparing for intervention twilson 02:06 PM Time: 14:05 Heparin 4000 units Intravenous Given by Berenice Maynard RN tw 02:06 PM Bed request placed twilson 02:06 PM Recorded Pressure: Ao, HR=68, Condition=Condition 1 (Aorta) Ao 84/53/66 02:06 PM Inflation device was opened. twilson 02:06 PM 6Fr HS Runway guide catheter was used to cannulate the PCI vessel successfully. reused? No twilson 02:07 PM .014 PT Graphix 300cm guide wire across target lesion- successful. reused? No twilson 02:08 PM HR=68 bpm, PXSS=605/49 mmhg, SpO2=98.0 %, Resp=17 B/min, Comment=NSR 02:08 PM 1.2 mm x 20 mm Emerge OTW balloon across target lesion- successful. reused? No twilson 02:09 PM Balloon inflated @ 18 raquel for 18 seconds twilson 02:10 PM Balloon inflated @ 18 raquel for 15 seconds twilson 02:12 PM Balloon inflated @ 18 raquel for 12 seconds twilson 02:13 PM HR=68 bpm, ZTYB=116/41 mmhg, SpO2=98.0 %, Resp=15 B/min 02:13 PM PCI lesion in Mid RCA. Pre Stenosis: 100 Pre CORTEZ Flow: 0: No Flow/No perfusion twilson 02:13 PM Balloon catheter removed intact. twilson 02:13 PM Right Coronary, Right Posterior Descending Arteries with Right Posterolateral and Acute Marginal branches with 100 % stenosis. If graft is supplying this area, 0 % stenosis twilson 02:14 PM Long 300cm wire cut with sterile wire cutters. twilson 02:14 PM Patient will go to [facility] when procedure is complete. twilson 02:15 PM 3.0mm x 38mm Synergy drug-eluting stent across target lesion- successful Lot #[id number] twilson 02:16 PM Time: 14:01 Patient comfortable and pain free: Yes twilson 02:16 PM Time: 14:01LOC: 4 = Oriented but drowsy twilson 02:18 PM HR=67 bpm, QLAB=385/54 mmhg, SpO2=98.0 %, Resp=13 B/min 02:18 PM Stent removed intact. twilson 02:18 PM 3.0 mm x 20mm NC Emerge balloon across target lesion- successful. reused? No twilson 02:19 PM Balloon inflated @ 20 raquel for 17 seconds twilson 02:19 PM Balloon inflated @ 20 raquel for 16 seconds twilson 02:19 PM Balloon catheter removed intact. twilson 02:20 PM 3.0mm x 38mm Synergy drug-eluting stent across target lesion- successful Lot #[id number] twilson 02:22 PM Stent removed intact. twilson 02:23 PM .014 Prowater 180cm guide wire across target lesion- successful. reused? No twilson 02:23 PM HR=68 bpm, VHFD=457/52 mmhg, SpO2=99.0 %, Resp=17 B/min, Comment=NSR 02:24 PM Stent reinserted. twilson 02:26 PM Stent deployed @ 15 raquel for 30 seconds twilson 02:26 PM Stent delivery system removed intact. twilson 02:27 PM Prowater guidewire removed, intact. twilson 02:28 PM 3.0mm x 24mm Synergy drug-eluting stent across target lesion- successful Lot #[id number] twilson 02:28 PM HR=68 bpm, XLWF=897/61 mmhg, SpO2=98.0 %, Resp=16 B/min, Comment=NSR 02:29 PM Stent deployed @ 16 raquel for 38 seconds twilson 02:30 PM Stent delivery system removed intact. twilson 02:30 PM Recorded Pressure: Ao, HR=68, Condition=Condition 1 (Aorta) Ao 104/64/80 02:31 PM 3.5 mm x 12mm NC Trek Rx balloon across target lesion- successful. reused? No twilson 02:32 PM Balloon inflated @ 18 raquel for 22 seconds twilson 02:33 PM HR=67 bpm, JRQK=101/71 mmhg, SpO2=99.0 %, Resp=17 B/min, Comment=NSR 02:33 PM Balloon inflated @ 22 raquel for 34 seconds twilson 02:34 PM Balloon inflated @ 18 raquel for 18 seconds twilson 02:34 PM Balloon inflated @ 18 raquel for 16 seconds twilson 02:35 PM Balloon inflated @ 22 raquel for 18 seconds twilson 02:35 PM Balloon inflated @ 18 raquel for 15 seconds twilson 02:36 PM Recorded Pressure: Ao, HR=70, Condition=Condition 1 (Aorta) Ao 101/70/83 02:36 PM Time: 14:36 Nitroglycerin 200 mcg Intracoronary Given by Gabriele Hughes MD twilson 02:37 PM Drawing an ACT twilson 02:38 PM Balloon catheter removed intact. twilson 02:38 PM HR=69 bpm, GVJB=089/48 mmhg, SpO2=98.0 %, Resp=21 B/min, Comment=NSR 02:40 PM At 14:40 the ACT was 178 seconds. twilson 02:40 PM Time: 14:40 Nitroglycerin 200 mcg Intracoronary Given by Gabriele Hughes MD twilson 02:41 PM Time: 14:40 Heparin 4000 units Intravenous Given by Berenice Maynard RN twilson 02:41 PM Guide wire removed intact. twilson 02:41 PM J-wire reinserted twilson 02:41 PM Guide catheter removed intact. twilson 02:42 PM Coronary Dominance: right twilson 02:42 PM Bolus angiogram of right Femoral complete: 2 ml/sec for a total of 4 mls twilson 02:42 PM Patient a-fib RVR and converted back to sinus rhythm. twilson 02:43 PM Time: 14:43 Plavix 300 mg Orally Given by Berenice Maynard RN twilson 02:44 PM HR=68 bpm, KYVY=333/53 mmhg, SpO2=98.0 %, Resp=19 B/min 02:46 PM Procedure completed at 14:46 twilson 02:46 PM Sign out completed: Radiation Dose 803.21 mGy Fluoro Time: 8.7 Isovue 370 - 200ml contrast 105 ml given by Gabriele Hughes MD, FACC. Complications: NoneCardiac Rehab Consult needed: YesConfirmed administered medications: Yes twilson 02:46 PM Isovue 370 - 500ml,1 Bottle(s) used. twilson 02:46 PM Sheath left in place to be pulled on floor/holding areaV+Pad twilson 02:46 PM Post ECG NSR twilson 02:46 PM Post Blood Pressure 130/53 twilson 02:47 PM 14:47 Post Pulses Bilateral DP & PT 2+ twilson 02:47 PM 14:47 Post Pulses Bilateral radial 2+ twilson 02:47 PM Information taught Cardiac Cath and PCI twilson 02:48 PM Education needs Procedure, Plan of Care, and Responsibilities of Patient in Care twilson 02:48 PM Learning barriers :None twilson 02:48 PM Education Methods Verbal twilson 02:48 PM Education evaluation Able to repeat information twilson 02:48 PM Site status No bleeding/hematoma - Rt Groin as reported by Eneida Ritchie RT (R) at 14:48 twilson 02:48 PM Opsite applied twilson 02:48 PM Plavix, Effient or Brilinta given Yes twilson 02:50 PM Family placed in consult room. twilson 02:53 PM Report given to Andreea KUMARI Pt taken to 2N Room #7. 14:53 twilson 02:53 PM Patient out of room: 14:53 twilson Complications Complication None Hemodynamics Pressures Site Systolic/A Wave Diastolic/V Wave Mean AO 71 50 60 AO 73 52 63 AO 79 60 69 AO 74 61 68 LV 94 4 12 LV 80 11 11 AO 85 62 71 AO 84 53 66 AO 104 64 80 AO 101 70 83 Post Procedure Information Blood Pressure: 130/53 mmHg Rhythm: NSR Post procedural instructions were given Site Checks Time Location Status Staff Sheath In? Note 02:48 PM Rt Groin No bleeding/hematoma Eneida Ritchie RT (R) Pulses Time Site Pre-Procedure Post-Procedure Note 12/28/2016 1:35:00 PM Bilateral DP & PT 2+ 12/28/2016 1:35:00 PM Bilateral radial 2+ 2:47:00 PM Bilateral DP & PT 2+ 2:47:00 PM Bilateral radial 2+ Updated by Saba Rivera, RT (R) on 12/28/2016 2:59:47 PM electronically signed on 12/28/2016 3:00:56 PM with status of Final
[2016-12-28] MEDS ORDERED: *HR* Atropine Sulfate 1 MG/10 ML SYRINGE ONE (15:32)
[2016-12-28] MEDS ORDERED: *HR* Rivaroxaban 10 MG TABLET PO SCH (18:00)
--- NOTE | 2016-12-28 18:16 | Event Note ---
Date of Encounter: 12/28/16 Time of Encounter: 10:20 Patient was seen and assessed at 10:20 AM. Patient presented constantly and elevated troponin 1.53. He was placed on a heparin drip and was waiting cardiology consultation when I saw him. He reported left chest pain without radiation that was relieved with morphine. He rated 1/10. He denied any nausea , vomiting, diaphoresis, shortness of breath. He is already taking aspirin, statin, beta rylie, Imdur, Ranexa, Plavix. Patient has a long history of coronary artery disease with stents and CABG. Patient began when he mowed grass for approximately 1 hour. He reported that he had to stop and rest due to the heat and humidity. He said he sat initiated with that of his truck and drank some soda. He said he began mowing and doing yard work again and was tired after starting again and reports that he "felt not so great". He said he went home and was still tired drank a beer. At 2220 last night he began having chest pain and was feeling "uncomfortable". He said he indicated taking 3 nitroglycerin and one aspirin 325 mg which relieved some of the pain very temporarily, approximately 10 minutes, the pain got worse and he was transported to the emergency department by EMS. Patient reports that his father of an OH at age 46 and was also diagnosed with hyperlipidemia. Mom is still living and has history of cancer and Alzheimer's. Patient had LHC in 2014 with 99% left main stenosis, 99% proximal LAD, 100% mid LAD, 90% proximal circumflex with SAMIR placed, 99% OM to the SAMIR placed, 80% mid RCA with SAMIR placed, BAGLEY to LAD patent. Echocardiogram in January, with LVEF 55-60% with moderate concentric LV hypertrophy, moderate diastolic dysfunction, mildly dilated left atrium, mild AR, mild DE all wall segments with normal motion. He admits that he is nonadherent to medication regimen as evidenced by hypertension, hyperlipidemia, A1c of 12.6. He states that he is aware that he needs to continue taking his medication, however, it has become a habit not to take medication. His is simply impossible and states that she constantly reminds him to take his medication. He denied any assistance that I can offer in regards to helping him make sure that he takes his medication regularly.. His physical exam was unremarkable. He had no anterior posterior cervical adenopathy, no carotid bruits on auscultation, no JVD, S1 and S2 heard with regular rate and rhythm. There are no gallops clicks murmurs. His lungs were clear anteriorly and posteriorly without wheezing, rhonchi, Rales, respiratory distress. His abdomen was slightly rounded, soft and nontender with bowel sounds present. He had no peripheral edema to lower extremities and +2 pedal and radial pulses bilaterally. He is alert and oriented 3, his speech was clear, he was alert, oriented and engaging. Patient had an [facility] today and was transferred to [facility] after procedure. Patient did have a stent placed.
[2016-12-29] MEDS: Insulin LISPRO 300 UNITS/3 ML VIAL SQ SCH ×2 (00:12→05:55)
[2016-12-29 04:33] LABS: Basophils % 0.4 %; Eosinophils # 0.1 K/mcL (0.0-0.6); Eosinophils % 1.2 %; Hematocrit 38.7 % (37.5-50.1); Hemoglobin 13.2 g/dL (12.9-16.9); Immature Granulocytes % 0.5 % (0-4); Lymphocytes # 2.7 K/mcL (0.6-4.6); Lymphocytes % 27.1 %; Mean Corpuscular HGB Conc 34.1 g/dL (31.6-35.5); Mean Corpuscular Hemoglobin 30.5 pg (28.0-33.3); Mean Corpuscular Volume 89.4 fL (83.0-100.0); Mean Platelet Volume 10.7 fL (9.4-12.4); Monocytes # 0.9 K/mcL (0.0-1.3); Monocytes % 9.2 %; Platelet Count 215 K/mcL (140-400); Red Blood Count 4.33 M/mcL (4.19-5.50); Red Cell Distribution Width 13.3 % (11.5-14.5); Segmented Neutrophils % 61.6 %
[2016-12-29 04:45] LABS: BUN/Creatinine Ratio 18 (6-26); Blood Urea Nitrogen 15 mg/dL (8-26); Calcium 8.4 mg/dL (8.6-10.8); Carbon Dioxide 26 mEq/L (19-29); Chloride 103 mEq/L (98-109); Glucose 206 mg/dL (70-99); Osmolality,Calculated 285 (280-300); Sodium 134 mEq/L (136-145); eGFR For African Americans > 60 (> 60); eGFR For Non-African Americans > 60 (> 60)
[2016-12-29 04:46] LABS: Potassium 4.4 mEq/L (3.5-4.5)
[2016-12-29 07:30] VITALS: BP 134/77
--- NOTE | 2016-12-29 08:01 | Invasive Diagnostic Lab ---
Name: Chester Foley Date of Study: 12/28/2016 Date: 1955 Ht: 175.0 cm /68.9 in Medical Record#: [id number] Age: 61 Wt: 98.2 kg / 216.49 lb Account/Order#: [id number] Gender: Male BSA: 2.13 Order #: [id number] Fluoro Dose: 803 mGy BMI: 32.07 Procedure Physician: Gabriele Hughes MD, [facility] Referring MD: Referring MD: Procedures Performed: LEFT HEART CATH W/ GRAFTS Stent w/ PTCA Single Major Vessel - SAMIR RCA Right iliofemoral angiography Indications: Non-Stemi Impressions: Patient had successful PTCA/Drug-Eluting Stent placement in the mid RCA for instent restenosis 06/12 patent bypasses BAGLEY LAD Severe small vessel disease - mid LAD after touchdown site of BAGLEY that is unamenable to revascularization and distal PDA/PLB There is mild LV Dysfunction EF 40%, ventriculogram done during atrial fibrillation with RVR. Repeat EF assessment with another modality. Patient converted from AF to sinus during intervention Recommendations: Optimal medical therapy of patient's disease. Aggressive risk factor modification. Triple therapy (aspirin/Plavix/xarelto) for 1 month minimum. If switching to single antiplatelet therapy, Brilinta would be preferred over Plavix if not cost prohibitive. History/Risk Factors: asthma Diabetes Hypertension Dyslipidemia Current/Recent Smoker Prior PA Procedure Access obtained in the right Femoral artery by percutaneous puncture Patient had successful PTCA/Drug-Eluting Stent placement in the mid RCA. Iliofemoral angiography via right femoral sheath Complications: None Contrast: Isovue 105ml Hemodynamics: Pressures Site Systolic/ A Wave Diastolic/ V Wave End Diastolic/ Mean HR AO 71 50 60 62 AO 73 52 63 64 AO 79 60 69 72 AO 74 61 68 115 LV 94 4 12 128 LV 80 11 11 111 AO 85 62 71 129 AO 84 53 66 68 AO 104 64 80 68 AO 101 70 83 70 LV Ventriculography Ejection Method: LV Gram Ejection Fraction: 40% - LVgram during AF RVR, repeat EF assessment Wall Motion: COHEN Anterobasal Normal Anterolateral Normal Apical: Normal Inferoapical Severe Hypokinesis Inferobasal Severe Hypokinesis Coronary Dominance: right Lesion Findings/Interventions * Left Main Coronary Artery The LMCA is angiographically free of disease. * Left Anterior Descending There is a 100% stenosis in the ostiall LAD. There is a 70% stenosis in the Mid LAD after bypass The Mid LAD is small in size. Diagonal (bypassed) has minimal disease * Circumflex The Circumflex has minimal disease with patent proximal circumflex and distal OM stent The 1st Marginal has 60-70% ostial proximal stenosis * Right Coronary Artery There is a 38 mm long, 100% stenosis in the Mid RCA. The lesion has a CORTEZ flow of 0 with thrombus. An intervention was performed on the Mid RCA with a final stenosis of 0%. There were no lesion complications. The final CORTEZ flow was 3. Distal PDA and PLB with severe disease - small vessel. Hockey stick guide, emerald wire used. Bypass study BAGLEY LAD (appears BAGLEY attached to diagonal) is patent with severe small vessel disease. Right iliofemoral angiography Appropriate sheath placement in the INFORMATICS EDUCATOR. No disease visualized in the distal external iliac, INFORMATICS EDUCATOR, or proximal SFA/profunda Interventional Device(s) Vessel Segment Type Name Diameter (mm) Length (mm) Mid RCA Drug Eluting Stent Synergy 3 24 Mid RCA Balloon NC Trek Rx 3.5 12 Mid RCA Balloon Emerge OTW 1.2 20 Mid RCA Balloon NC Emerge 3 20 Mid RCA Drug Eluting Stent Synergy 3 38 Updated by RT Pan (R) on 12/28/2016 2:59:11 PM Gabriele Hughes MD, FACC electronically signed on 12/29/2016 7:55:35 AM with status of Final
[2016-12-29] MEDS: Ranolazine 500 MG TAB.ER.12H PO SCH (08:25)
[2016-12-29] MEDS: Fenofibrate 54 MG TABLET PO SCH (08:26)
[2016-12-29] MEDS: Aspirin Enteric Coated 81 MG Tablet PO SCH (08:26)
[2016-12-29] MEDS: Metoprolol 100 MG TABLET PO SCH (08:26)
[2016-12-29] MEDS: Carbidopa/Levodopa 25/100 TABLET PO SCH (08:27)
[2016-12-29] MEDS: Isosorbide MONOnitrate (24 HR) 60 MG TAB.ER.24H PO SCH (08:27)
[2016-12-29] MEDS: Gabapentin 400 MG CAPSULE PO SCH (08:27)
[2016-12-29] MEDS: BuPROPion SR (12 HR) 150 MG TABLET PO SCH (08:27)
--- NOTE | 2016-12-29 09:11 | Discharge Summary ---
Date of Encounter: 12/29/16 Time of Encounter: 09:12 - Discharge Diagnosis (1) NSTEMI (non-ST elevated myocardial infarction) Priority: Primary Status: Acute (2) Atrial fibrillation Priority: Secondary Status: Chronic Qualifiers: Atrial fibrillation type: chronic Qualified Code(s): I48.2 - Chronic atrial fibrillation (3) HTN (hypertension) Priority: Secondary Status: Chronic Qualifiers: Hypertension type: essential hypertension Qualified Code(s): I10 - Essential (primary) hypertension (4) Hyperglycemia due to type 2 diabetes mellitus Priority: Primary Status: Acute Qualifiers: Diabetes mellitus english lecturer insulin use: with english lecturer use Qualified Code( s): E11.65 - Type 2 diabetes mellitus with hyperglycemia; Z79.4 - [facility] ( current) use of insulin - Discharge Medications Prescriptions: Ranolazine [Ranexa] 1,000 mg PO BID #120 Home Medications: Albuterol Sulfate [Albuterol Inhaler] 2 puff IH DAILY PRN 12/30/15 [History] Aspirin [Lo-Dose Aspirin EC] 81 mg PO DAILY 12/30/15 [History] Fluticasone Propionate Nasal [Flonase] 1 spray IH BID 12/30/15 [History] HYDROcodone/Acet 5/325 mg [[place] 5-325 mg] 1 tab PO TID PRN 12/30/15 [History] Metoprolol [Lopressor] 100 mg PO BID 12/30/15 [History] Multivitamin [Multivitamins] 1 cap PO DAILY 12/30/15 [History] Niacin [Niaspan] 500 mg PO BID 12/30/15 [History] Nitroglycerin [Nitrostat] 0.4 mg SL Q5M PRN 12/30/15 [History] Rivaroxaban [Xarelto] 20 mg PO DAILY 12/30/15 [History] Insulin ASPART [Novolog Flexpen] 0 unit SQ ACHS #0 12/31/15 [Rx] Rosuvastatin [Crestor] 40 mg PO HS #30 tablet 12/31/15 [Rx] BuPROPion SR (12 HR) [Wellbutrin SR] 150 mg PO BID 12/29/16 [Rx] Carbidopa/Levodopa 25/100 [Sinemet 25/100] 1 each PO BID tab 12/29/16 [Rx] Clopidogrel [Plavix] 75 mg PO DAILY tab 12/29/16 [Rx] Fenofibrate [Tricor] 162 mg PO DAILY tab 12/29/16 [Rx] Gabapentin [Neurontin] 1,200 mg PO TID 12/29/16 [Rx] Isosorbide MONOnitrate (24 HR) [Imdur] 60 mg PO DAILY 12/29/16 [Rx] Lisinopril [Zestril] 20 mg PO DAILY tab 12/29/16 [Rx] Ranolazine [Ranexa] 1,000 mg PO BID #120 12/29/16 [Rx] Sertraline [Zoloft] 100 mg PO DAILY tab 12/29/16 [Rx] diazePAM [Valium] 2 mg PO HS tab 12/29/16 [Rx] Allergies/Adverse Reactions: Allergies amlodipine [From Norvasc] Adverse Reaction (Verified 12/30/15 19:09) See Comments States unable to walk loratadine [From Claritin] Adverse Reaction (Verified 08/11/15 10:05) See Comments states he acted crazy for 3 days Date of admission: 12/28/16 20:38 Primary care physician: Deidra Lomax, - Patient Status Disposition: Home, Self-Care Condition: Good Functional capacity at discharge: independent ambulation Overall status at discharge: patient is back to baseline - Discharge Instructions Instructions: Atrial Fibrillation (DC), Left Heart Catheterization (DC), Chronic Hypertension (DC) Follow Up With: Deidra Lomax, ORTIZ [Primary Care Provider] - 01/06/17 2:15 pm Roberta Garcia DO [Partnered Physician] - 02/01/17 9:05 am Additional Instructions: check your blood sugars before meals and at bedtime. write down numbers and bring record to doctor's appointment. your cholesterol is very high, Please follow a STRICT LOW FAT, LOW SUGAR DIET and take all your medications. - Diet and Activity Activity: resume usual activities as tolerated Diet: diabetic diet, low fat, low cholesterol, low salt diet Interval History: Patient denies any chest pain or shortness of breath. He is ambulating and eating well. He is eager to go home. Hospital course: Mr. Foley is a 61 year old male with past medical history of hypertension , CAD status post CABG and diabetes mellitus. Patient presented with left- sided chest pain. Troponin peaked at 1.53. Patient underwent left heart catheterization showing 100% stenosis ostial LAD, 70% mid LAD after bypass small in size, circumflex with minimal disease with patent proximal circumflex and distal OM stent, OM1 60-70%, 100% mid RCA with 2 SAMIR placed, PDA and PLB with severe disease and small vessel. BAGLEY to LAD patent with severe small vessel disease. Left ventriculogram with EF 40%, however patient was in a.fib RVR at time of assessment. Patient was asymptomatic and hemodynamically stable at discharge. He was ambulating and eating well. PLAN: Continue Ranexa, statin, Plavix, aspirin, beta rylie. Follow-up in the cardiology clinic in one week. Patient instructed to check his blood sugars before meals and at bedtime for a week and bring numbers to primary care physician's appointment. - Time Spent with Patient Total time spent providing and/or coordinating discharge services: - Constitutional Vitals: Temp Pulse Resp BP Pulse Ox 98.5 F 77 16 134/77 97 12/29/16 07:27 12/29/16 07:27 12/29/16 07:27 12/29/16 07:27 12/29/16 07:27 General appearance: Present: cooperative, A&O X 3, pleasant, no acute distress, obese, answers questions appropriately - Neck Neck exam general surgery: Present: supple, trachea midline. Absent: lymphadenopathy - Respiratory Respiratory exam: Present: CTAB - Cardiovascular Cardiovascular exam: Present: RRR - GI/Abdominal GI/Abdominal exam: Present: normal bowel sounds, soft. Absent: distended, tenderness - Extremities Exam Extremities exam: Absent: pedal edema - Back Exam Back exam: Absent: CVA tenderness (L), CVA tenderness (R) - Neurological Exam Neurological exam: Present: alert, oriented X3, no focal deficits, strengths equal and symetr throughout. Absent: facial droop, speech deficit - Skin Skin exam: Absent: rash
--- NOTE | 2016-12-29 10:06 | Cardiology Progress Note ---
Date of Encounter: 12/29/16 Time of Encounter: 09:00 Assessment and Plan (1) NSTEMI (non-ST elevated myocardial infarction) Current Visit: Yes Status: Acute Per cardiology: -Troponin 0.02, 1.53. -Patient admitted with chest pain. -Currently chest pain free. -ON asa, statin, beta rylie, imdur, ranexa, plavix. -Cardiac rehab consulted. -[facility] yesterday with 100% stenosis ostial LAD, 70% mid LAD after bypass small in size, circumflex with minimal disease with patent proximal circumflex and distal OM stent, OM1 60-70%, 100% mid RCA with 2 SAMIR placed, PDA and PLB with severe disease and small vessel. BAGLEY to LAD patent with severe small vessel disease. Left ventriculogram with EF 40%, however patient was in a.fib RVR at time of assessment. -Patient denies chest pain overnight. -Denies right groin access site issues. -Patient educated on dual anti-platelet therapy for at least one year uninterrupted. Patient states understanding and states he will be compliant with medications. -Right groin access site education given to patient and . -Cardiology will sign off and will follow in outpatient setting. Follow up set. -Can consider echocardiogram in outpatient setting. (2) Chest pain Current Visit: Yes Status: Acute Per cardiology: -Patient states started not feeling well while mowing grass and weed eating. -Chest pain intensified at home and he took ASA 325mg and 3 nitro. -Patient admitted to [facility] [place]. -Currently chest pain free. -Denies chest pain overnight. Qualifiers: Chest pain type: precordial pain Qualified Code(s): R07.2 - Precordial pain (3) CAD (coronary artery disease) Current Visit: Yes Status: Chronic Per cardiology: -Known CAD with CABG x3 2002 -Last [facility] 2014 with 99% left main stenosis. 99% proximal LAD, 100% mid LAD, 99% proximal circumflex with SAMIR placed, 99% om2 with SAMIR placed, 80% mid RCA with SAMIR placed, BAGLEY to LAD patent. -[facility] 01/14/16 with LVEF 55-60%, moderate concentric left ventricular hypertrophy , moderate diastolic dysfunction, mildly dilated left atrium, mild AR, mild MN, all wall segments with normal motion. -Admitted to non-compliance with medications. However, states if he has to have intervention during [facility] he would comply with medications. I educated patient on importance of medication compliance. -On asa, statin, beta rylie, imdur, ranexa, plavix, and heparin drip. -[facility] yesterday as above. -Will continue to follow in outpatient setting. Qualifiers: Coronary Disease-Associated Artery/Lesion type: unspecified vessel or lesion type [place] vs. transplanted heart: [place] heart Associated angina: with unspecified angina Qualified Code(s): I25.119 - Atherosclerotic heart disease of [place] coronary artery with unspecified angina pectoris (4) Atrial fibrillation Current Visit: No Status: Chronic Per cardiology: -Known previous history of atrial fibrillation after CABG. -Not currently on anticoagulation. -Had previously taken xarelto. Denies bleeding or blood loss. -Telemetry reviewed with intermittent atrial fibrillation/flutter noted yesterday. No a.fib appreciated overnight. -[id number] score 3 (HTN, DM, and vascular disease). Recommend usp anticoagulation. Patient agreeable for intermediate teacher anticoagulation. Patient states he would be compliant with anticoagulation. Patient educated on increased risk of stroke if not taking anticoagulation. Patient and state understanding. Xarelto started yesterday. -Average HR per telemetry 73, sinus rhythm. -Will continue to monitor in outpatient setting. Qualifiers: Atrial fibrillation type: chronic Qualified Code(s): I48.2 - Chronic atrial fibrillation (5) HTN (hypertension) Current Visit: Yes Status: Chronic Per cardiology: -Known history of HTN. -ON beta rylie and carmela inhibitor. -Patient reports non-compliance with medications. -Recommend given home medication -Recommend close monitoring of HR and BP as patient has been taking medications at home intermittently. . Qualifiers: Hypertension type: essential hypertension Qualified Code(s): I10 - Essential (primary) hypertension (6) Hyperlipidemia Current Visit: No Status: Chronic Per cardiology: -Known hyperlipidemia. -ON statin. -Patient reports non-compliance with medication. -Triglycerides 657, cholesterol 320, LDL unable to perform, HDL 36. -I stressed importance of medication compliance with patient. -I educated patient on low fat, low cholesterol diet. Qualifiers: Hyperlipidemia type: unspecified Qualified Code(s): E78.5 - Hyperlipidemia , unspecified Discussion w patient/family: The assessment and plan as outlined above was discussed with the patient and/or family members who expressed understanding and agreement. All questions were answered. Thank you for involving us in the care of your patient. Please call with any questions. Discussed and reviewed with Subjective Principal diagnosis: NSTEMI Interval history: Patient presented to [facility] [place] with complaints of chest pain. Troponin 1.53. [facility] yesterday with 2 SAMIR to RCA. Patient denies chest pain. Patient denies issues with right groin access site. Patient states he has been up walking. Objective Vital Signs, Last 4 Hours Temp Pulse Resp BP Pulse Ox 12/29/16 07:27 98.5 F 77 16 134/77 97 General: Conversant, No Apparent Distress HEENT: Atraumatic, Normocephaly, Mucus Membranes Moist Neck: No JVD, Normal carotid pulses Cardiac: Reg Rate and Rhythm, Normal S1 and S2, No Murmur Lungs: Normal Breath Sounds, No Wheeze, Rales, Rhonchi Neuro: Alert and responsive, No focal deficits noted Abdomen: Soft, Non-Tender Skin: No rashes noted on visualized skin, Other (Right groin acccess site without hematoma or ecchymosis. ) Musculoskeletal: No Chest Wall Tenderness Extremities: No Clubbing, No Cyanosis, No Edema, Normal Pulses Results 12/29/16 04:08 12/29/16 04:08 Lab Results Active Medications Aspirin (Aspirin Ec) 81 mg PO DAILY [facility] Stop: 06/29/17 09:01 Last Admin: 12/29/16 08:26 Dose: 81 mg Bupropion HCl (Wellbutrin Sr) 150 mg PO BID [facility] Stop: 06/29/17 09:01 Last Admin: 12/29/16 08:27 Dose: Not Given Carbidopa/Levodopa (Sinemet) 1 each PO BID [facility] Stop: 06/29/17 09:01 Last Admin: 12/29/16 08:27 Dose: Not Given Clopidogrel Bisulfate (Plavix) 75 mg PO DAILY [facility] Stop: 06/29/17 09:01 Last Admin: 12/29/16 08:26 Dose: 75 mg Dextrose/Water (Dextrose 50% (Syg)) 25 ml IVP AD PRN PRN Reason: Hypoglycemia Stop: 06/29/17 01:38 Diazepam (Valium) 2 mg PO HS [facility] Stop: 06/29/17 01:46 Last Admin: 12/28/16 22:18 Dose: 2 mg Fenofibrate (Tricor) 162 mg PO DAILY [facility] Stop: 06/29/17 09:01 Last Admin: 12/29/16 08:26 Dose: 162 mg Gabapentin (Neurontin) 1,200 mg PO TID [facility] Stop: 06/29/17 09:01 Last Admin: 12/29/16 08:27 Dose: Not Given Glucagon (Glucagen) 1 mg IM ONCE PRN PRN Reason: Hypoglycemia Stop: 06/29/17 01:38 Glucose (Gluctose) 15 gm PO ONCE PRN PRN Reason: Hypoglycemia Stop: 06/29/17 01:38 Glucose (Gluctose) 30 gm PO ONCE PRN PRN Reason: Hypoglycemia Stop: 06/29/17 01:38 Dextrose (Dextrose 5%) 1,000 mls @ 100 mls/hr IVC .Q10H PRN PRN Reason: HYPOGLYCEMIA Stop: 06/29/17 01:38 Insulin Human Lispro (Humalog) 0 units SQ Q6HR [facility] PRN Reason: Protocol Stop: 06/29/17 06:01 Last Admin: 12/29/16 05:55 Dose: 4 units Isosorbide Mononitrate (Imdur) 60 mg PO DAILY [facility] Stop: 06/29/17 09:01 Last Admin: 12/29/16 08:27 Dose: 60 mg Lisinopril (Zestril) 20 mg PO DAILY [facility] PRN Reason: Protocol Stop: 06/29/17 09:01 Last Admin: 12/28/16 10:56 Dose: 20 mg Metoprolol Tartrate (Lopressor) 100 mg PO BID [facility] Stop: 06/29/17 09:01 Last Admin: 12/29/16 08:26 Dose: 100 mg Naloxone HCl (Narcan) 0.4 mg IVP Q2MIN PRN PRN Reason: Opioid Reversal Stop: 06/29/17 01:43 Nitroglycerin (Nitroglycerin) 0.4 mg SL Q5M PRN PRN Reason: Chest Pain Stop: 06/29/17 01:40 Ranolazine (Ranexa) 1,000 mg PO BID [facility] Stop: 06/29/17 09:01 Last Admin: 12/29/16 08:25 Dose: 500 mg Rivaroxaban (Xarelto) 20 mg PO 1800 [facility] Stop: 06/29/17 18:01 Last Admin: 12/28/16 18:58 Dose: 20 mg Rosuvastatin Calcium (Crestor) 40 mg PO HS [facility] Stop: 06/29/17 01:46 Last Admin: 12/28/16 21:21 Dose: Not Given Sertraline HCl (Zoloft) 100 mg PO DAILY [facility] Stop: 06/29/17 09:01 Last Admin: 12/29/16 08:26 Dose: 100 mg Laboratory Tests 12/29/16 04:08 Potassium 4.4 D Creatinine 0.83 - Imaging and Cardiology Chest Xray: report reviewed Echo: report reviewed Cardiac cath: report reviewed - EKG Interpretation EKG results cardiology: other (Telemetry reviewed with average HR previous 12 hours noted to be 73, sinus rhythm. PVCs, couplets, and one triplet PVCS noted. PACs noted. No atrial fibrillation appreciated overnight.) Consult Discharge Plan - Plan Instructions: Atrial Fibrillation (DC), Left Heart Catheterization (DC), Chronic Hypertension (DC) Additional Instructions: check your blood sugars before meals and at bedtime. write down numbers and bring record to doctor's appointment. your cholesterol is very high, Please follow a STRICT LOW FAT, LOW SUGAR DIET and take all your medications. Referrals: Deidra Lomax CNP [Primary Care Provider] - 01/06/17 2:15 pm Roberta Garcia DO [Partnered Physician] - 02/01/17 9:05 am Prescriptions: Ranolazine [Ranexa] 1,000 mg PO BID #120
[2016-12-29] MEDS: Lisinopril 20 MG TABLET PO SCH (10:14)
[2016-12-29] MEDS: hydroCHLOROthiazide 25 MG TABLET PO SCH (10:14)
--- NOTE | 2016-12-29 11:54 | Electrocardiograph Report ---
[address] [place], [place] [address] Test Date: 2016-12-27 Pat Name: Chester Foley Department: 103 Room: 2N07 Gender: M Skein Winder: : 1955 Requested By: Jerel Copeland Order Number: [id number] Reading MD: Gabriele Hughes MD Measurements Intervals [place] Rate: 100 P: 46 TX: 150 QRS: 41 QRSD: 106 T: 91 QT: 338 QTc: 395 Interpretive Statements SINUS TACHYCARDIA LEFT ATRIAL ENLARGEMENT POSSIBLE LATERAL ISCHEMIA Electronically Signed On 12-29-2016 11:52:57 EDT by Gabriele Hughes MD
--- NOTE | 2016-12-29 11:55 | Electrocardiograph Report ---
[address] [place], [place] [address] Test Date: 2016-12-28 Pat Name: Chester Foley Department: 105 Room: 2N07 Gender: M Scrum Project Manager: DEBBIE : 1955 Requested By: Jerel Copeland Order Number: [id number] Reading MD: Gabriele Hughes MD Measurements Intervals [place] Rate: 98 P: 28 MA: 148 QRS: 21 QRSD: 106 T: 114 QT: 348 QTc: 404 Interpretive Statements SINUS RHYTHM LEFT ATRIAL ENLARGEMENT LATERAL ISCHEMIA Electronically Signed On 12-29-2016 11:53:16 EDT by Gabriele Hughes MD
== END 2016-12-29 10:49 | disposition home or self-care (01) | DRG 246 ==
LOC: 3BNU 23:46 → EMEROO 23:46 → 3BNU 12-28 03:09 → 2NNU 12-28 14:59 → SUATTDRO 12-28 20:38
PROVIDERS: ADMIT Registered Nurse; ATTEND Internal Medicine

== ENCOUNTER 2017-04-11 19:59 | Observation (INO) ==
[2017-04-11 20:14] LABS: Hematocrit 40.9 % (37.5-50.1); Hemoglobin 13.5 g/dL (12.9-16.9); Immature Granulocytes % 0.4 % (0-4); Mean Corpuscular Hemoglobin 28.8 pg (28.0-33.3); Mean Corpuscular Volume 87.4 fL (83.0-100.0); Mean Platelet Volume 10.6 fL (9.4-12.4); Platelet Count 250 K/mcL (140-400); Red Blood Count 4.68 M/mcL (4.19-5.50); Red Cell Distribution Width 13.4 % (11.5-14.5); Segmented Neutrophils % 68.6 %
[2017-04-11 20:15] LABS: Basophils # 0.1 K/mcL (0.0-0.2); Basophils % 0.7 %; Eosinophils # 0.3 K/mcL (0.0-0.6); Eosinophils % 2.5 %; Lymphocytes # 2.2 K/mcL (0.6-4.6); Lymphocytes % 21.6 %; Monocytes # 0.6 K/mcL (0.0-1.3); Monocytes % 6.2 %; Neutrophils # 6.9 K/mcL (1.6-8.9)
[2017-04-11 20:26] LABS: BUN/Creatinine Ratio 18 (6-26); Blood Urea Nitrogen 16 mg/dL (8-26); Calcium 9.3 mg/dL (8.6-10.8); Carbon Dioxide 23 mEq/L (19-29); Chloride 103 mEq/L (98-109); Glucose 165 mg/dL (70-99); Osmolality,Calculated 287 (280-300); Sodium 136 mEq/L (136-145); eGFR For African Americans > 60 (> 60); eGFR For Non-African Americans > 60 (> 60)
[2017-04-11 20:38] LABS: Bilirubin,Urine Negative (Negative); Blood,Urine Negative (Negative); Clarity,Urine Clear (Clear); Color,Urine Yellow (Yellow); Glucose,Urine (UA) 100 mg/dL (Normal); Ketones,Urine Negative (Negative); Leukocyte Esterase,Urine Negative (Negative); Nitrite,Urine Negative (Negative); PH,Urine 7.5 pH Units (5.0-8.0); Protein,Urine 30 mg/dL (Neg-Trace); Specific Gravity,Urine 1.021 (1.010-1.025); Urobilinogen,Urine Normal (Normal)
[2017-04-11] MEDS ORDERED: Aspirin 325 MG TABLET PO ONE (20:39)
[2017-04-11 20:42] LABS: Bacteria,Urine None Seen per hpf (None-Few); Hyaline Casts,Urine None Seen per lpf (None-Few); Squamous Epithelial Cell,Urine Few per lpf (None-Few); WBC,Urine 0-3 per hpf (0-3)
--- NOTE | 2017-04-11 20:45 | Emergency Department Note ---
Disposition Clinical Impression: Near syncope, Lightheaded Disposition: Admitted As Inpatient Condition: Good Time of Disposition: 22:28 General Adult HPI - General Chief complaint: ED Dizziness Stated complaint: lightheaded/heart hx Time Seen by Provider: 04/11/17 20:04 Source: patient, family, EMS Mode of arrival: EMS Limitations: no limitations Nursing Notes Reviewed: Yes Vital Signs Reviewed: Yes - History of Present Illness HPI Narrative: Patient presents to the ED via EMS and was seen and evaluated immediately upon arrival with family. Family reports that the patient has an extensive history of coronary artery disease including 5 bypass surgeries and 15 stents. He is on Xarelto for paroxysmal atrial fibrillation and is also on aspirin and Plavix for his coronary disease. Reports that earlier today he started developing the feeling of lightheadedness. Denies any acute onset or a spinning type sensation. No associated chest pain, dyspnea, nausea or diaphoresis. No changes in his vision. He states that he has had symptoms like this before with his other times, he has needed stents. That's why he came to be evaluated. Pain Scale: 0 - Related Data Home Medications Medication Instructions Recorded Confirmed Albuterol Sulfate [Albuterol 2 puff IH Q4H PRN 12/30/15 04/11/17 Inhaler] Aspirin [Lo-Dose Aspirin EC] 81 mg PO DAILY 12/30/15 04/11/17 Fluticasone Propionate Nasal 50 mcg NS DAILY 12/30/15 04/11/17 [Flonase] HYDROcodone/Acet 5/325 mg [[place] 1 tab PO Q8H PRN 12/30/15 04/11/17 5-325 mg] Metoprolol [Lopressor] 150 mg PO BID 12/30/15 04/11/17 Multivitamin [Multivitamins] 1 cap PO DAILY 12/30/15 04/11/17 Rivaroxaban [Xarelto] 20 mg PO QPM 12/30/15 04/11/17 Folic Acid 1 mg PO DAILY 02/16/17 04/11/17 Insulin Degludec [Tresiba 45 unit SQ DAILY 02/16/17 04/11/17 Flextouch U-100] Lutein [Natural Lutein] 20 mg PO DAILY 02/16/17 04/11/17 Melatonin [Melatin] 3 mg PO HS PRN 02/16/17 04/11/17 [place]-3/Dha/Epa/Fish Oil [[place]-3 1,000 mg PO TID 02/16/17 04/11/17 Fish Oil 1,000 mg Sfgl] diazePAM [Valium] 2 mg PO DAILY PRN 02/16/17 04/11/17 hydroCHLOROthiazide 25 mg PO DAILY 02/16/17 04/11/17 [Hydrochlorothiazide] Cholecalciferol (Vitamin D3) 2,000 unit PO TID 04/11/17 04/11/17 [Vitamin D] Fenofibrate Nanocrystallized 160 mg PO DAILY 04/11/17 04/11/17 [Triglide] Insulin ASPART [Novolog Flexpen] 0 unit SQ TIDWM 04/11/17 04/11/17 Montelukast [Singulair] 10 mg PO HS 04/11/17 04/11/17 Nitroglycerin [Nitrostat] 0.4 mg SL Q5M PRN 04/11/17 04/11/17 Rosuvastatin [Crestor] 20 mg PO HS 04/11/17 04/11/17 Previous Rx's Medication Instructions Recorded Clopidogrel [Plavix] 75 mg PO DAILY tab 12/29/16 Isosorbide MONOnitrate (24 HR) 60 mg PO DAILY 12/29/16 [Imdur] Lisinopril [Zestril] 20 mg PO DAILY tab 12/29/16 Ranolazine [Ranexa] 1,000 mg PO BID #120 12/29/16 Sertraline [Zoloft] 100 mg PO DAILY tab 12/29/16 Allergies Allergy/AdvReac Type Severity Reaction Status Date / Time amlodipine [From Norvasc] AdvReac See Verified 12/30/15 19:09 Comments loratadine [From Claritin] AdvReac See Verified 08/11/15 10:05 Comments All systems ED: reviewed and negative except as stated. Constitutional: Denies: fever Eyes: Denies: vision change Cardiovascular: Reports: syncope (near). Denies: chest pain, palpitations Respiratory: Denies: dyspnea Musculoskeletal: Denies: back pain Neurological: Reports: as per HPI. Denies: headache Past Medical History - Past Medical History Attestation: Yes The following information was validated with the patient. Source: patient Medical history: Reports: arthritis, asthma, atrial fibrillation, coronary artery disease, diabetes, hyperlipidemia, hypertension, myocardial infarction Surgical history: Reports: angioplasty/stent, coronary bypass (CABG), herniorrhaphy, knee replacement, orthopedic, other, other Psychiatric history: Reports: depression - Social History Smoking Status: Former smoker Smokeless Tobacco Status: No Alcohol use: Reports: rarely Drug use: Reports: none Physical Exam - General Limitations: no limitations General appearance: alert, in no apparent distress - Head Head exam: atraumatic, normocephalic, normal inspection - Eye Eye exam: Present: normal appearance, PERRL, EOMI - ENT ENT exam: mucous membranes dry - Neck Neck exam: Present: normal inspection, full ROM, trachea midline - Chest Chest inspection: Present: normal inspection, symmetric chest wall rise - Respiratory Respiratory exam: Present: normal lung sounds bilaterally - Cardiovascular Cardiovascular exam: Present: regular rate, normal rhythm, normal heart sounds - Abdominal Exam Abdominal exam: Present: soft, Non-Tender. Absent: tenderness, distention, guarding, rebound, rigidity - Extremities Exam Extremities exam: Present: normal inspection, full ROM. Absent: tenderness, pedal edema - Neurological Exam Neurological exam: Present: alert, oriented X3, CN II-XII intact - Expanded Neurological Exam Patient oriented to: Present: person, place, time Cranial nerves: EOM function (II, III, IV, ): Normal, facial palsy (VII): Normal, spinal accessory function (XI): Normal Motor strength - LUE: 5/5 Motor strength - RUE: 5/5 Motor strength - LLE: 5/5 Motor strength - RLE: 5/5 Upper motor neuron exam: rajeev neglect: Absent bilaterally, pronator drift: Absent bilaterally Sensory exam upper extremity: light touch: Normal Sensory exam lower extremity: light touch: Normal Coma Scale Eye Opening: Spontaneous Coma Scale Motor Response: Obeys Commands Coma Scale Verbal Response: Oriented Coma Scale Total: 15 - Psychiatric Psychiatric exam: Present: normal affect, normal mood - Skin Skin exam: Present: warm, dry, intact, normal color Course Course Narrative: Patient presenting essentially with his anginal equivalent. Extensive cardiac history. States he feels like he is going to pass out. We will workup and admit - Reevaluation(s) Reevaluation #1: Labs are back and unremarkable. We will add on a head CT due to his feeling of lightheadedness. Reevaluation #2: Head CT was normal. Admitted to the hospitalist service. Vital Signs Temperature 98.4 F 04/11/17 20:03 Pulse Rate 79 04/11/17 20:03 Respiratory Rate 16 04/11/17 20:03 Blood Pressure 185/98 04/11/17 20:03 O2 Sat by Pulse Oximetry 94 04/11/17 20:03 Temperature 98.3 F 04/12/17 02:30 Pulse Rate 64 04/12/17 02:30 Respiratory Rate 16 04/12/17 04:33 Blood Pressure 159/91 04/12/17 02:35 O2 Sat by Pulse Oximetry 92 04/12/17 04:33 Oxygen Delivery Oxygen Delivery Room Air Medical Decision Making - Medical Records Medical records reviewed: Yes I reviewed the patient's medical records. - Lab Data Lab results reviewed: Yes I reviewed the patient's lab results. Result diagrams: 04/12/17 02:25 04/12/17 02:25 Lab Results 04/11/17 04/11/17 04/11/17 Range/Units 20:08 20:08 20:08 WBC 10.1 (4.3-11.1) K/mcL RBC 4.68 (4.19-5.50) M/mcL Hgb 13.5 (12.9-16.9) g/dL Hct 40.9 (37.5-50.1) % MCV 87.4 (83.0-100.0) fL MCH 28.8 (28.0-33.3) pg MCHC 33.0 (31.6-35.5) g/dL RDW 13.4 (11.5-14.5) % Plt Count 250 (140-400) K/mcL MPV 10.6 (9.4-12.4) fL Immature Gran % 0.4 (0-4) % Seg Neutrophils % 68.6 % Lymphocytes % 21.6 % Monocytes % 6.2 % Eosinophils % 2.5 % Basophils % 0.7 % Neutrophils # 6.9 (1.6-8.9) K/mcL Lymphocytes # 2.2 (0.6-4.6) K/mcL Monocytes # 0.6 (0.0-1.3) K/mcL Eosinophils # 0.3 (0.0-0.6) K/mcL Basophils # 0.1 (0.0-0.2) K/mcL Sodium 136 (136-145) mEq/L Potassium 4.0 (3.5-4.5) mEq/L Chloride 103 (98-109) mEq/L Carbon Dioxide 23 (19-29) mEq/L BUN 16 (8-26) mg/dL Creatinine 0.87 (0.72-1.25) mg/dL Est GFR ( Amer) > 60 (> 60) Est GFR (Non-Af Amer) > 60 (> 60) BUN/Creatinine Ratio 18 (6-26) Glucose 165 H (70-99) mg/dL Calculated Osmolality 287 (280-300) Calcium 9.3 (8.6-10.8) mg/dL Troponin I 0.02 (0-0.03) ng/mL Urine Color (Yellow) Urine Clarity (Clear) Urine pH (5.0-8.0) pH Units Ur Specific [place] (1.010-1.025) Urine Protein (Neg-Trace) mg/dL Urine Glucose (UA) (Normal) mg/dL Urine Ketones (Negative) mg/dL Urine Blood (Negative) Urine Nitrite (Negative) Urine Bilirubin (Negative) Urine Urobilinogen (Normal) mg/dL Ur Leukocyte Esterase (Negative) Urine Microscopic RBC (0-3) per hpf Urine Microscopic WBC (0-3) per hpf Ur Squamous Epith Cells (None-Few) per lpf Urine Bacteria (None-Few) per hpf Hyaline Casts (None-Few) per lpf Ur Culture Indicated? (NO) 04/11/17 Range/Units 20:30 WBC (4.3-11.1) K/mcL RBC (4.19-5.50) M/mcL Hgb (12.9-16.9) g/dL Hct (37.5-50.1) % MCV (83.0-100.0) fL MCH (28.0-33.3) pg MCHC (31.6-35.5) g/dL RDW (11.5-14.5) % Plt Count (140-400) K/mcL MPV (9.4-12.4) fL Immature Gran % (0-4) % Seg Neutrophils % % Lymphocytes % % Monocytes % % Eosinophils % % Basophils % % Neutrophils # (1.6-8.9) K/mcL Lymphocytes # (0.6-4.6) K/mcL Monocytes # (0.0-1.3) K/mcL Eosinophils # (0.0-0.6) K/mcL Basophils # (0.0-0.2) K/mcL Sodium (136-145) mEq/L Potassium (3.5-4.5) mEq/L Chloride (98-109) mEq/L Carbon Dioxide (19-29) mEq/L BUN (8-26) mg/dL Creatinine (0.72-1.25) mg/dL Est GFR ( Amer) (> 60) Est GFR (Non-Af Amer) (> 60) BUN/Creatinine Ratio (6-26) Glucose (70-99) mg/dL Calculated Osmolality (280-300) Calcium (8.6-10.8) mg/dL Troponin I (0-0.03) ng/mL Urine Color Yellow (Yellow) Urine Clarity Clear (Clear) Urine pH 7.5 (5.0-8.0) pH Units Ur Specific [place] 1.021 (1.010-1.025) Urine Protein 30 H (Neg-Trace) mg/dL Urine Glucose (UA) 100 H (Normal) mg/dL Urine Ketones Negative (Negative) mg/dL Urine Blood Negative (Negative) Urine Nitrite Negative (Negative) Urine Bilirubin Negative (Negative) Urine Urobilinogen Normal (Normal) mg/dL Ur Leukocyte Esterase Negative (Negative) Urine Microscopic RBC 3-5 H (0-3) per hpf Urine Microscopic WBC 0-3 (0-3) per hpf Ur Squamous Epith Cells Few (None-Few) per lpf Urine Bacteria None Seen (None-Few) per hpf Hyaline Casts None Seen (None-Few) per lpf Ur Culture Indicated? NO (NO) - Radiology Data Radiology results reviewed: Yes I reviewed the patient's radiology results. Chest X-Ray 04/11/17 20:05 IMPRESSION: No acute cardiopulmonary disease. D/ / Zaki Luz MD / Zaki Luz MD Interpreting Provider: Zaki Luz MD Head CT 04/11/17 20:51 IMPRESSION: Stable CT brain with no acute intracranial abnormality. D/ / Margi Owens MD / Margi Owens MD Interpreting Provider: Margi Owens MD - EKG Data EKG #1 EKG attestation: Yes I reviewed and interpreted this EKG. EKG results narrative: Sinus rhythm with sinus arrhythmia, rate 81, OR interval 178, QRS 114, QTC 451, normal axis, no acute ischemic changes Attestation Statement - Attestation Attestation: I examined this patient and my medical decision-making was reviewed with the Resident Physician. I agree with the documented findings, disposition and treatment plan as described except to the extent set forth below. 6-2[age]-old male with dizziness. He does have paroxysmal A. fib. He does appear to be heading into atrial fibrillation based on sinus arrhythmia with occasional runs of atrial fibrillation. He is rate controlled. He has not any coagulated. He has multiple comorbidities including multiple stents and previous heart attacks. Plan admit for further evaluation of dizziness, rule out posterior circulation infarction as well as ACS as well as possible arrhythmias cause of dizziness.
[2017-04-11] MEDS: 0.9 % Sodium Chloride 1,000 ML IVC SCH (21:00)
[2017-04-12] MEDS ORDERED: Acetaminophen 325 MG TABLET PO PRN (00:54)
[2017-04-12] MEDS ORDERED: *HR* Dextrose 50 % in Water (Syg) 50 ML SYRINGE IVP PRN (00:54)
[2017-04-12] MEDS ORDERED: *HR* Morphine 2 MG/ML SYRINGE IVP PRN (00:54)
[2017-04-12] MEDS ORDERED: D5% in Water 1,000 ML IVC PRN (00:54)
[2017-04-12] MEDS ORDERED: Naloxone 0.4 MG/ML INJ IVP PRN (00:54)
[2017-04-12] MEDS ORDERED: Dextrose Gel 15 GM PO PRN ×2 (00:54)
[2017-04-12] MEDS ORDERED: Nitroglycerin 0.4 MG TAB.SUBL SL PRN (00:59)
[2017-04-12] MEDS ORDERED: Melatonin 3 MG TABLET PO PRN (00:59)
[2017-04-12] MEDS ORDERED: diazePAM 2 MG TABLET PO PRN (00:59)
[2017-04-12] MEDS ORDERED: *HR* HYDROcodone/Acet 5/325 mg TABLET PO PRN (00:59)
--- NOTE | 2017-04-12 01:51 | Internal Med History&Physical ---
Date of Encounter: 04/12/17 Time of Encounter: 01:00 Assessment and Plan (1) Palpitations Current visit: Yes Status: Acute 1. Will monitor on telemetry. 2. Cycle troponins, EKG's, and order ECHO. 3. Will consult cardiology given his extensive CAD and recent LA. Patient and note that last LA was "silent" and he had no chest pain. 4. Continue home meds as appropriate. 5. Monitor electrolytes and correct if necessary. (2) CAD (coronary artery disease) Current visit: Yes Status: Chronic 1. Cycle troponins and EKG's. 2. Continue home meds, nitrates, and Xarelto. 3. Will use IV Morphine for unstable angina if necessary. 4. ECHO to evaluate LV function. 5. Cardiology consult as above. Qualifiers: Coronary Disease-Associated Artery/Lesion type: [place] artery [place] vs. transplanted heart: [place] heart Associated angina: without angina Qualified Code(s): I25.10 - Atherosclerotic heart disease of [place] coronary artery without angina pectoris (3) IDDM (insulin dependent diabetes mellitus) Current visit: Yes Status: Chronic 1. Continue home basal insulin and add SSI. 2. Monitor glucose and adjust as necessary. (4) DVT prophylaxis Current visit: Yes Status: Acute 1. Patient on home Xarelto dosing. Internal Medicine - H&P: HPI Chief complaint: palpitations Admitted From: Emergency Dept Plans for Post Hospital Care: Home History of present illness: Mr. Foley is a 61 year old male who presents with complaints of palpitations and elevated blood pressure. Because of persistent palpitations and suspicion of irregular heartbeat, he was brought to the ER by his . Workup was negative except for some ectopic beats noted on telemetry and EKG monitoring. Blood pressure was elevated, however. He was subsequently admitted to the hospitalist service. He has a history of extensive coronary artery disease and most recently suffered myocardial infarction this summer. He has a history of coronary bypass grafting and multiple PCI/stents. His last stent was placed this past December. He and his state that he has been sikh with his medication and he has not missed any dosages. He denies any chest pain currently. He does not have any palpitations currently. He denies shortness of breath, fevers, cough, or diaphoresis. Past Med Surg Social Fam HX - Past Medical History Attestation: Yes The following information was validated with the patient. Source: patient, old records reviewed, obtained from family Medical history: arthritis, asthma, atrial fibrillation, coronary artery disease , diabetes, hyperlipidemia, hypertension, myocardial infarction Psychiatric history: depression - Past Surgical History Surgical History: angioplasty/stent, coronary bypass (CABG), herniorrhaphy, knee replacement, orthopedic, other, other - Social History Smoking Status: Former smoker Smokeless Tobacco Status: No Alcohol use: rarely Drug use: none Current living situation: Home, With Family Activity Level: Independent ambulation Recent Out of Country Travel Within the Last 8 Weeks: No - Family History Father Adopted: No Family Member Ethnicity: Non- Living Status: Hx Family Cardiac Disorders: Yes Internal Medicine - H&P: Meds Albuterol Sulfate [Albuterol Inhaler] 2 puff IH Q4H PRN 12/30/15 [History] Aspirin [Lo-Dose Aspirin EC] 81 mg PO DAILY 12/30/15 [History] Fluticasone Propionate Nasal [Flonase] 50 mcg NS DAILY 12/30/15 [History] HYDROcodone/Acet 5/325 mg [[place] 5-325 mg] 1 tab PO Q8H PRN 12/30/15 [History] Metoprolol [Lopressor] 150 mg PO BID 12/30/15 [History] Multivitamin [Multivitamins] 1 cap PO DAILY 12/30/15 [History] Rivaroxaban [Xarelto] 20 mg PO QPM 12/30/15 [History] Clopidogrel [Plavix] 75 mg PO DAILY tab 12/29/16 [Rx] Isosorbide MONOnitrate (24 HR) [Imdur] 60 mg PO DAILY 12/29/16 [Rx] Lisinopril [Zestril] 20 mg PO DAILY tab 12/29/16 [Rx] Ranolazine [Ranexa] 1,000 mg PO BID #120 12/29/16 [Rx] Sertraline [Zoloft] 100 mg PO DAILY tab 12/29/16 [Rx] Folic Acid 1 mg PO DAILY 02/16/17 [History] Insulin Degludec [Tresiba Flextouch U-100] 45 unit SQ DAILY 02/16/17 [History] Lutein [Natural Lutein] 20 mg PO DAILY 02/16/17 [History] Melatonin [Melatin] 3 mg PO HS PRN 02/16/17 [History] [place]-3/Dha/Epa/Fish Oil [[place]-3 Fish Oil 1,000 mg Sfgl] 1,000 mg PO TID [History] diazePAM [Valium] 2 mg PO DAILY PRN 02/16/17 [History] hydroCHLOROthiazide [Hydrochlorothiazide] 25 mg PO DAILY 02/16/17 [History] Cholecalciferol (Vitamin D3) [Vitamin D] 2,000 unit PO TID 04/11/17 [History] Fenofibrate Nanocrystallized [Triglide] 160 mg PO DAILY 04/11/17 [History] Insulin ASPART [Novolog Flexpen] 0 unit SQ TIDWM 04/11/17 [History] Montelukast [Singulair] 10 mg PO HS 04/11/17 [History] Nitroglycerin [Nitrostat] 0.4 mg SL Q5M PRN 04/11/17 [History] Rosuvastatin [Crestor] 20 mg PO HS 04/11/17 [History] 3 Allergy/AdvReac Type Severity Reaction Status Date / Time amlodipine [From Norvasc] AdvReac See Verified 12/30/15 19:09 Comments loratadine [From Claritin] AdvReac See Verified 08/11/15 10:05 Comments - Constitutional Constitutional: no chills, no fever(s), no night sweats - EENT Eyes: no blurry vision, no change in vision Ears: no ear pain, no tinnitus Nose, mouth and throat: no nasal congestion, no nasal discharge, no sore throat - Cardiovascular Cardiovascular ROS IM: irregular heart rhythm, palpitations, no chest pain, no diaphoresis, no dyspnea, no dyspnea on exertion, no edema, no lightheadedness, no paroxysmal nocturnal dyspnea, no syncope - Respiratory Respiratory: no cough, no dyspnea, no hemoptysis - Gastrointestinal Gastrointestinal: no abdominal pain, no diarrhea, no hematemesis, no hematochezia, no melena, no nausea, no vomiting - Genitourinary Genitourinary ROS male: no dysuria, no flank pain, no nocturia - Musculoskeletal Musculoskeletal ROS IM: no arthralgias, no back pain - Integumentary Integumentary IM: no rash, no jaundice - Neurological Neurological ROS: no disequilibrium, no dizziness, no focal weakness, no frequent falls, no vertigo - Psychiatric Psychiatric: no anxiety, no depression - Endocrine Endocrine IM: no polydipsia, no polyuria - Hematologic/Lymphatic Hematologic/Lymphatic: easy bruising, no lymphadenopathy - Allergic/Immunologic Allergic/Immunologic: no wheezing, no GI upset with certain foods - Constitutional Vitals: Temp Pulse Resp BP Pulse Ox 98.1 F 87 18 156/85 96 04/11/17 23:51 04/11/17 23:51 04/11/17 23:51 04/11/17 23:51 04/11/17 23:51 General appearance: Present: cooperative, A&O X 3, pleasant, no acute distress - Head Head exam: Present: atraumatic, normal inspection - Eye Eye exam: Present: EOMI, normal appearance, PERRL. Absent: scleral icterus Pupils: Present: normal accommodation - ENT ENT exam: Present: mucous membranes dry, normal exam - Neck Neck exam general surgery: Present: full ROM, supple. Absent: tenderness - Expanded Neck Exam Neck exam: Absent: carotid bruit - Respiratory Respiratory exam: Present: CTAB. Absent: chest wall tenderness, rales, respiratory distress, rhonchi, wheezes - Cardiovascular Cardiovascular exam: Present: RRR, +S1, +S2. Absent: diastolic murmur, JVD, systolic murmur - GI/Abdominal GI/Abdominal exam: Present: soft. Absent: hepatomegaly, mass, splenomegaly, tenderness - Extremities Exam Extremities exam: Present: full ROM, warm, radial pulses palpable and symmetrical. Absent: calf tenderness, pedal edema - Back Exam Back exam: Absent: CVA tenderness (L), CVA tenderness (R) - Neurological Exam Neurological exam: Present: alert, CN II-XII intact, oriented X3, no focal deficits - Psychiatric Psychiatric exam: Present: normal affect, normal mood - Skin Skin exam: Present: dry, warm. Absent: rash Internal Med - H&P Results - Labs CBC & Chem 7: 04/11/17 20:08 04/11/17 20:08 - EKG Data -: EKG Interpreted by Myself - EKG Data Prior EKG available for review: yes When compared to previous EKG: there are significant changes EKG comments: 04/12/17 01:56 Sinus rhythm with PAC's; no acute ST-T changes - Diagnostic Studies Chest x-ray Status: image reviewed by me (negative) - VTE Reasons for not Prescribing Prophylaxis: Not indicated-Anticoagulated or INR therapeutic
[2017-04-12] MEDS: 0.9 % Sodium Chloride 1,000 ML IVC SCH ×3 (02:17→20:47)
[2017-04-12 03:16] LABS: Basophils # 0.1 K/mcL (0.0-0.2); Basophils % 0.5 %; Eosinophils # 0.3 K/mcL (0.0-0.6); Eosinophils % 2.4 %; Hemoglobin 12.8 g/dL (12.9-16.9); Immature Granulocytes % 0.7 % (0-4); Lymphocytes % 28.3 %; Mean Corpuscular HGB Conc 32.8 g/dL (31.6-35.5); Mean Corpuscular Hemoglobin 28.8 pg (28.0-33.3); Mean Corpuscular Volume 87.6 fL (83.0-100.0); Mean Platelet Volume 11.1 fL (9.4-12.4); Monocytes # 0.7 K/mcL (0.0-1.3); Monocytes % 6.3 %; Neutrophils # 6.6 K/mcL (1.6-8.9); Platelet Count 244 K/mcL (140-400); Red Blood Count 4.45 M/mcL (4.19-5.50); Red Cell Distribution Width 13.4 % (11.5-14.5); Segmented Neutrophils % 61.8 %
[2017-04-12 03:35] LABS: Alanine Aminotransferase 14 Units/L (0-55); Albumin 3.3 g/dL (3.5-5.0); Alkaline Phosphatase 44 Units/L (38-126); Aspartate Amino Transferase 14 Units/L (5-34); BUN/Creatinine Ratio 17 (6-26); Bilirubin,Total 0.4 mg/dL (0.2-1.2); Blood Urea Nitrogen 15 mg/dL (8-26); Calcium 8.8 mg/dL (8.6-10.8); Carbon Dioxide 24 mEq/L (19-29); Chloride 104 mEq/L (98-109); Chol/HDL Ratio 3.7 (0-4.9); Cholesterol 149 mg/dL (< 200); Globulin 3.4 g/dL (2.4-3.5); Glucose 169 mg/dL (70-99); HDL Cholesterol 40 mg/dL (40-59); LDL Cholesterol,Calculated 92 mg/dL (0-99); Magnesium 1.7 mg/dL (1.6-2.6); Osmolality,Calculated 291 (280-300); Potassium 3.9 mEq/L (3.5-4.5); Sodium 138 mEq/L (136-145); Total Protein 6.7 g/dL (6.0-8.3); Triglycerides 87 mg/dL (< 150); eGFR For African Americans > 60 (> 60); eGFR For Non-African Americans > 60 (> 60)
--- NOTE | 2017-04-12 08:02 | Electrocardiograph Report ---
[place] [id number] Test Date: 2017-04-11 Pat Name: Chester Foley Department: 103 Room: 3B23 Gender: M Assessment Expert: JAIDA : 1955 Requested By: Jacobo Devries Order Number: [id number] Reading MD: Roberta Garcia Measurements Intervals [place] Rate: 81 P: 38 WV: 178 QRS: 25 QRSD: 114 T: 20 QT: 414 QTc: 451 Interpretive Statements SINUS RHYTHM WITH FREQUENT SUPRAVENTRICULAR PREMATURE COMPLEXES PROBABLE LEFT ATRIAL ENLARGEMENT Electronically Signed On 04-12-2017 8:00:25 EDT by Roberta Garcia
--- NOTE | 2017-04-12 08:07 | Electrocardiograph Report ---
[address] [address] Test Date: 2017-04-12 Pat Name: Chester Foley Department: 113 Room: 3B23 Gender: M Glue Cook: [id number] : 1955 Requested By: Jermaine Rodriguez Order Number: [id number] Reading MD: Roberta Garcia Measurements Intervals [place] Rate: 71 P: 24 VT: 178 QRS: 16 QRSD: 115 T: 6 QT: 453 QTc: 475 Interpretive Statements SINUS RHYTHM WITH OCCASIONAL VENTRICULAR PREMATURE COMPLEXES WITH OCCASIONAL SUPRAVENTRICULAR PREMATURE COMPLEXES PROBABLE LEFT ATRIAL ENLARGEMENT IVCD Electronically Signed On 04-12-2017 8:05:49 EDT by Roberta Garcia
[2017-04-12] MEDS: Insulin LISPRO 300 UNITS/3 ML VIAL SQ SCH ×3 (08:09→17:05)
[2017-04-12] MEDS: Fluticasone Propionate Nasal 50 MCG/SPRAY BOTTLE NS SCH (08:39)
[2017-04-12] MEDS: Aspirin Enteric Coated 81 MG Tablet PO SCH (08:39)
[2017-04-12] MEDS: Isosorbide MONOnitrate (24 HR) 60 MG TAB.ER.24H PO SCH (08:40)
[2017-04-12] MEDS: Folic Acid 1 MG TABLET PO SCH (08:40)
[2017-04-12] MEDS: hydroCHLOROthiazide 25 MG TABLET PO SCH (08:40)
[2017-04-12] MEDS: Metoprolol 100 MG TABLET PO SCH ×2 (08:41→20:46)
[2017-04-12] MEDS: (Lutein [Natural Lutein] 20 MG) PO SCH (08:42)
[2017-04-12] MEDS: OMEGA FISH OIL PO SCH ×3 (08:42→20:47)
[2017-04-12] MEDS: Ranolazine 500 MG TAB.ER.12H PO SCH ×2 (08:43→20:47)
[2017-04-12] MEDS: Fenofibrate 54 MG TABLET PO SCH (08:43)
[2017-04-12] MEDS: Cholecalciferol (D-3) 1,000 UNIT TABLET PO SCH (08:43)
[2017-04-12] MEDS: Multivit/Ca/Min/Fe/FA 1 TAB TABLET PO SCH (08:43)
--- NOTE | 2017-04-12 08:49 | Cardiology Consult Note ---
Date of Encounter: 04/12/17 Time of Encounter: 08:43 Assessment and Plan (1) Lightheaded Current Visit: Yes Status: Acute Trop neg x2 Head CT and CXR neg EKG sinus rhythm with few premature complexes and mild atrial enlargement Urine specfic gravity does not suggest dehyradtion etiology Denies any chest pain Subjectively improved since admission ECHO ordered - rule out any ischemic cardiomyopathy or any changes from previous that might cause his near syncope. No invasive intervention is required at this time. Continue medical management. (2) CAD (coronary artery disease) Current Visit: Yes Status: Chronic History of 5 myocardial infarctions with 15 stents and CABG 3 vessel in 2002. First VT was at age 46 (father past away at age 46 of an VT. Significant testing was done at that time to find no genetic cause) Continue plavix, ASA, xarelto. lopressor, zestril and Crestor Needs tight glycemic control Most recent VT was December 2016 with two new SAMIR placed. At that time, his EF was measured at 40% but he was in Afib RVR. Previous EF on ECHO in 01/24/16 had an EF 55-60% with moderate LV diastolic dysfunction See above. Qualifiers: Coronary Disease-Associated Artery/Lesion type: bypass graft [place] vs. transplanted heart: [place] heart Associated angina: without angina Qualified Code(s): I25.810 - Atherosclerosis of coronary artery bypass graft(s) without angina pectoris (3) HTN (hypertension) Current Visit: No Status: Chronic BP 185/98 on arrival to ED BP 165/94 today. On EMR review, BP was 128/80 on 03/08/17 at his last outpatient follow-up Taking HCTZ 25 qd, Lopressor 150mg BID and Zestril 20mg qd Kidney function is wnl and lytes normal Increased Zestril to 40mg Qualifiers: Hypertension type: essential hypertension Qualified Code(s): I10 - Essential (primary) hypertension (4) Atrial fibrillation Current Visit: No Status: Chronic On xarelto and Lopressor. Appears to be stable at this time. EKG sinus. Qualifiers: Atrial fibrillation type: chronic Qualified Code(s): I48.2 - Chronic atrial fibrillation (5) IDDM (insulin dependent diabetes mellitus) Current Visit: Yes Status: Chronic Continue sliding scale (6) Hyperlipidemia Current Visit: No Status: Chronic Restarted home med - Crestor 20 Current lipid panel is normal Laboratory Tests 04/12/17 02:25 Triglycerides 87 Cholesterol 149 LDL Cholesterol, Calc 92 VLDL Cholesterol, Calc 17 HDL Cholesterol 40 Qualifiers: Hyperlipidemia type: unspecified Qualified Code(s): E78.5 - Hyperlipidemia , unspecified (7) ANA on CPAP Current Visit: Yes Status: Chronic Instructed to bring home CPAP. Uncontrolled ANA can worsen afib Discussion w patient/family: The assessment and plan as outlined above was discussed with the patient and/or family members who expressed understanding and agreement. All questions were answered. Thank you for involving us in the care of your patient. Please call with any questions. History of Present Illness Chief complaint: dizziness History of present illness: Mr. Foley is a very pleasant 61 year old male with a past medical history of CAD s/p CABG, HTN, ANA on CPAP, T2DM and hyperlipidemia who presented to the [facility] ED yesterday with a chief complaint of lightheadedness. He states that he was sitting on the couch with his and felt dizzy. He did not report any chest pain, palpitations, n/v, diaphoresis or LE edema. His heard a weird heart beat while she had her head on his chest and called a friend from the local fire department to come listen to his heart. They subsequently came to the ED and of note, Trop neg x2, CXR neg, Head CT neg adn EKG demonstrating sinus rhythm with few premature complexes and mild atrial enlargement. He was admitted via the hospitalist service. ECHO ordered and cardiology was consulted. On evaluation, he reports 5 myocardial infarctions with 15 stents and CABG 3 vessel in 2002. His first VT was at age 46 and his father past away at age 46 of an VT. Significant testing was done at that time to find no genetic cause. Patient is taking plavix, ASA, xarelto. lopressor, zestril and Crestor. He quit smoking at age 32 and does not drink EtOH. His T2Dm have been uncontrolled with an A1C of roughly 13 last year and now is around 9 as of 6 weeks ago. Patient has significant arthritis in his knee with one TKA, but is unable to operate on the other due to his cardiac history. On EMR, review, most recent VT was December 2016 with two new SAMIR placed. Currently in cardiac rehabilitation program. At that time, his EF was measured at 40% but he was in Afib RVR. Previous EF on ECHO in 01/24/16 had an EF 55-60% with moderate LV diastolic dysfunction. We will continue to follow and offer further recommendations or interventions. Past Med Surg Social Fam HX - Past Medical History Medical history: arthritis, asthma, atrial fibrillation, coronary artery disease , diabetes, hyperlipidemia, hypertension, myocardial infarction Psychiatric history: depression - Past Surgical History Surgical History: angioplasty/stent, coronary bypass (CABG), herniorrhaphy, knee replacement, orthopedic, other, other - Social History Smoking Status: Former smoker Smokeless Tobacco Status: No Alcohol use: rarely Drug use: none - Family History Father Adopted: No Family Member Ethnicity: Non- Living Status: Hx Family Cardiac Disorders: Yes Medications and Allergies Albuterol Sulfate [Albuterol Inhaler] 2 puff IH Q4H PRN 12/30/15 [History] Aspirin [Lo-Dose Aspirin EC] 81 mg PO DAILY 12/30/15 [History] Fluticasone Propionate Nasal [Flonase] 50 mcg NS DAILY 12/30/15 [History] HYDROcodone/Acet 5/325 mg [[place] 5-325 mg] 1 tab PO Q8H PRN 12/30/15 [History] Metoprolol [Lopressor] 150 mg PO BID 12/30/15 [History] Multivitamin [Multivitamins] 1 cap PO DAILY 12/30/15 [History] Rivaroxaban [Xarelto] 20 mg PO QPM 12/30/15 [History] Clopidogrel [Plavix] 75 mg PO DAILY tab 12/29/16 [Rx] Isosorbide MONOnitrate (24 HR) [Imdur] 60 mg PO DAILY 12/29/16 [Rx] Lisinopril [Zestril] 20 mg PO DAILY tab 12/29/16 [Rx] Ranolazine [Ranexa] 1,000 mg PO BID #120 12/29/16 [Rx] Sertraline [Zoloft] 100 mg PO DAILY tab 12/29/16 [Rx] Folic Acid 1 mg PO DAILY 02/16/17 [History] Insulin Degludec [Tresiba Flextouch U-100] 45 unit SQ DAILY 02/16/17 [History] Lutein [Natural Lutein] 20 mg PO DAILY 02/16/17 [History] Melatonin [Melatin] 3 mg PO HS PRN 02/16/17 [History] [place]-3/Dha/Epa/Fish Oil [[place]-3 Fish Oil 1,000 mg Sfgl] 1,000 mg PO TID [History] diazePAM [Valium] 2 mg PO DAILY PRN 02/16/17 [History] hydroCHLOROthiazide [Hydrochlorothiazide] 25 mg PO DAILY 02/16/17 [History] Cholecalciferol (Vitamin D3) [Vitamin D] 2,000 unit PO TID 04/11/17 [History] Fenofibrate Nanocrystallized [Triglide] 160 mg PO DAILY 04/11/17 [History] Insulin ASPART [Novolog Flexpen] 0 unit SQ TIDWM 04/11/17 [History] Montelukast [Singulair] 10 mg PO HS 04/11/17 [History] Nitroglycerin [Nitrostat] 0.4 mg SL Q5M PRN 04/11/17 [History] Rosuvastatin [Crestor] 20 mg PO HS 04/11/17 [History] 3 Allergy/AdvReac Type Severity Reaction Status Date / Time amlodipine [From Norvasc] AdvReac See Verified 12/30/15 19:09 Comments loratadine [From Claritin] AdvReac See Verified 08/11/15 10:05 Comments All Systems Review: A 10-system review of systems was performed and is negative for pertinent findings except as documented above in the HPI. - Constitutional Constitutional: no headache(s), no weight gain - Cardiovascular Cardiovascular: as per HPI - Respiratory Respiratory: no cough - Gastrointestinal Gastrointestinal: no abdominal pain - Genitourinary Genitourinary: no dysuria - Musculoskeletal Musculoskeletal: arthralgias - Neurological Neurological: no abnormal speech Physical Examination Vital Signs, Last 4 Hours Temp Pulse Resp BP Pulse Ox 04/12/17 08:02 16 95 04/12/17 07:13 97.9 F 65 18 165/94 93 General: Conversant, No Apparent Distress HEENT: Atraumatic, Normocephaly, Mucus Membranes Moist Neck: No JVD, Normal carotid pulses Cardiac: Other (irregular irregular) Lungs: Normal Breath Sounds, No Wheeze, Rales, Rhonchi Neuro: Alert and responsive, No focal deficits noted Abdomen: Soft, Non-Tender Skin: No rashes noted on visualized skin Musculoskeletal: No Chest Wall Tenderness Extremities: No Clubbing, No Cyanosis, No Edema, Normal Pulses Results 04/12/17 02:25 04/12/17 02:25 Lab Results 04/12/17 04/12/17 04/12/17 02:25 02:25 02:25 WBC 10.7 Hgb 12.8 L Hct 39.0 Plt Count 244 Sodium 138 Potassium 3.9 Chloride 104 Carbon Dioxide 24 BUN 15 Creatinine 0.86 Glucose 169 H Calcium 8.8 Magnesium 1.7 Total Bilirubin 0.4 AST 14 ALT 14 Alkaline Phosphatase 44 Troponin I 0.03 04/12/17 07:48 WBC Hgb Hct Plt Count Sodium Potassium Chloride Carbon Dioxide BUN Creatinine Glucose Calcium Magnesium Total Bilirubin AST ALT Alkaline Phosphatase Troponin I 0.03 - Imaging and Cardiology Chest Xray: report reviewed, image reviewed Echo: report reviewed Cardiac cath: report reviewed - EKG Interpretation EKG results cardiology: personally reviewed, no diagnostic ischemia Consult Discharge Plan - Plan Referrals: Paul Figueroa MD [Primary Care Provider] -
[2017-04-12] MEDS ORDERED: Lisinopril 20 MG TABLET PO SCH ×2 (09:00→11:19)
[2017-04-12] MEDS ORDERED: INSULIN DEGLUDEC 45 UNIT SQ SCH (09:00)
[2017-04-12 09:19] LABS: Thyroid Stimulating Hormone 2.538 mcIU/mL (0.350-4.840)
[2017-04-12] MEDS: Insulin DETEMIR 100 UNIT/ML X5UNITS SQ SCH (11:25)
--- NOTE | 2017-04-12 17:14 | Event Note ---
Date of Encounter: 04/12/17 Time of Encounter: 16:49 Chester Foley is a 61-year-old male with PMH CAD, hypertension, diabetes and paroxysmal atrial fibrillation presented to [facility] on 04/12/2017 with complaints of palpitations and lightheadedness. He was placed in observation status for cardiology evaluation. 1. Paroxysmal atrial fibrillation: per hx. Presented with palpitations. Rate controlled. 04/12/2017 echo with EF 55%, diastolic dysfunction, normal left atrium size. No significant arrhythmias noted on telemetry review. Continue home BB and Xarelto. Cardiology following. 2. CAD: History severe CAD with 5 MIs, 15 stents and CABG 3 vessel in 2002. Serial troponins negative, EKG without acute ST changes. Repeat echo with EF 55 %, diastolic dysfunction and possible inferior wall hypokinesis which is a new finding ( TTE 01/2016 with no wall motion abnormalities). Cardiology following, await further recommendations. Keep NPO after midnight in light of possible cardiac intervention. Continue home ASA, Plavix, nitrae, Ranexa, Xarelto, statin 3. Hypertension: Uncontrolled with SBPs in 170s on arrival. Patient reports medication compliance. BP improved with resuming home BP medication. Monitor BP and titrate PRN 4. Diabetes: per hx. uncontrolled. Hgb A1c 9% and 01/2017. Continue home long- acting insulin. SSI. Monitor blood sugar and titrate PRN. Repeat Hgb A1c pending 5. DVT prophylaxis: Xarelto
[2017-04-12] MEDS ORDERED: *HR* Rivaroxaban 10 MG TABLET PO SCH (18:00)
[2017-04-13] MEDS: 0.9 % Sodium Chloride 1,000 ML IVC SCH ×2 (03:58→11:06)
[2017-04-13 04:51] LABS: Hematocrit 37.8 % (37.5-50.1); Hemoglobin 12.6 g/dL (12.9-16.9); Mean Corpuscular HGB Conc 33.3 g/dL (31.6-35.5); Mean Corpuscular Hemoglobin 28.8 pg (28.0-33.3); Mean Corpuscular Volume 86.5 fL (83.0-100.0); Mean Platelet Volume 11.3 fL (9.4-12.4); Platelet Count 236 K/mcL (140-400); Red Blood Count 4.37 M/mcL (4.19-5.50); Red Cell Distribution Width 13.5 % (11.5-14.5)
[2017-04-13 05:36] LABS: Alanine Aminotransferase 15 Units/L (0-55); Albumin 3.1 g/dL (3.5-5.0); Albumin/Globulin Ratio 0.9 (1.1-2.2); Alkaline Phosphatase 44 Units/L (38-126); Aspartate Amino Transferase 14 Units/L (5-34); BUN/Creatinine Ratio 17 (6-26); Bilirubin,Total 0.5 mg/dL (0.2-1.2); Blood Urea Nitrogen 14 mg/dL (8-26); Calcium 8.9 mg/dL (8.6-10.8); Carbon Dioxide 23 mEq/L (19-29); Chloride 106 mEq/L (98-109); Globulin 3.4 g/dL (2.4-3.5); Glucose 147 mg/dL (70-99); Osmolality,Calculated 289 (280-300); Sodium 138 mEq/L (136-145); Total Protein 6.5 g/dL (6.0-8.3); eGFR For African Americans > 60 (> 60); eGFR For Non-African Americans > 60 (> 60)
[2017-04-13] MEDS: Insulin LISPRO 300 UNITS/3 ML VIAL SQ SCH ×2 (07:25→11:09)
[2017-04-13] MEDS: Aspirin Enteric Coated 81 MG Tablet PO SCH (09:04)
[2017-04-13] MEDS: Folic Acid 1 MG TABLET PO SCH (09:04)
[2017-04-13] MEDS: Isosorbide MONOnitrate (24 HR) 60 MG TAB.ER.24H PO SCH (09:05)
[2017-04-13] MEDS: Metoprolol 100 MG TABLET PO SCH (09:05)
[2017-04-13] MEDS: hydroCHLOROthiazide 25 MG TABLET PO SCH (09:05)
[2017-04-13] MEDS: Ranolazine 500 MG TAB.ER.12H PO SCH (09:06)
[2017-04-13] MEDS: Fenofibrate 54 MG TABLET PO SCH (09:07)
[2017-04-13] MEDS: Cholecalciferol (D-3) 1,000 UNIT TABLET PO SCH (09:07)
[2017-04-13] MEDS: Multivit/Ca/Min/Fe/FA 1 TAB TABLET PO SCH (09:07)
[2017-04-13] MEDS: Fluticasone Propionate Nasal 50 MCG/SPRAY BOTTLE NS SCH (09:15)
[2017-04-13] MEDS: Insulin DETEMIR 100 UNIT/ML X5UNITS SQ SCH (09:15)
[2017-04-13] MEDS: (Lutein [Natural Lutein] 20 MG) PO SCH (09:18)
[2017-04-13] MEDS: OMEGA FISH OIL PO SCH ×2 (09:18→12:53)
[2017-04-13 10:39] VITALS: BP 157/82
--- NOTE | 2017-04-13 11:01 | Cardiology Progress Note ---
Date of Encounter: 04/13/17 Time of Encounter: 10:58 Assessment and Plan (1) Lightheaded Current Visit: Yes Status: Acute Trop neg x3 Head CT and CXR neg EKG sinus rhythm with few premature complexes and mild atrial enlargement Urine specific gravity does not suggest dehydration etiology Denies any chest pain Resolved since admission ECHO performed on 04/12/2017 was reviewed and demonstrated EF 55%, moderate concentric left ventricular hypertrophy/diastolic dysfunction, mild MR/NV and mid inferior and basal inferior mukherjee were hypokinetic. - Findings from [facility] in 12/2016 were unchanged with similar hypokinesis of mid inferior and basal inferior mukherjee With no change on ECHO since last visit and with the absence of cardinal symptoms of ACS, no invasive intervention is required at this time. Continue optimal medical management with ASA, Plavix, Crestor, Imdur, Lopressor , Zestril and Nitro PRN. Followup with outpatient cardiology with Dr. Garcia next week. Cardiology will sign off at this time. Please re-consult if there are any questions or concerns in the future. Thanks for involving us in Mr. Foley's care. (2) CAD (coronary artery disease) Current Visit: Yes Status: Chronic History of 5 myocardial infarctions with 15 stents and CABG 3 vessel in 2002. First UT was at age 46 (father past away at age 46 of an UT. Significant testing was done at that time to find no genetic cause) Continue plavix, ASA, xarelto. lopressor, zestril and Crestor Continue tight glycemic control Most recent UT was December 2016 with two new SAMIR placed. At that time, his EF was measured at 40% but he was in Afib RVR. There was a mid-basal inferior wall hypokinesis noted at that time. Previous EF on ECHO in 01/24/16 had an EF 55-60% with moderate LV diastolic dysfunction with no wall motion abnormality. ECHO performed on 04/12/2017 was reviewed and demonstrated EF 55%, moderate concentric left ventricular hypertrophy/diastolic dysfunction, mild MR/NV with mid inferior and basal inferior mukherjee with hypothesis. See above. Qualifiers: Coronary Disease-Associated Artery/Lesion type: bypass graft [place] vs. transplanted heart: [place] heart Associated angina: without angina Qualified Code(s): I25.810 - Atherosclerosis of coronary artery bypass graft(s) without angina pectoris (3) HTN (hypertension) Current Visit: No Status: Chronic BP 165/94 yesterday > 157/82. Increased Zestril to 40mg ANA can be worsening his HTN during his stay with lack of CPAP use. Continue taking home medications and will followup as an outpatient to revisit regimen. Qualifiers: Hypertension type: essential hypertension Qualified Code(s): I10 - Essential (primary) hypertension (4) Atrial fibrillation Current Visit: No Status: Chronic On xarelto and Lopressor. Appears to be stable at this time. EKG sinus. Qualifiers: Atrial fibrillation type: chronic Qualified Code(s): I48.2 - Chronic atrial fibrillation (5) IDDM (insulin dependent diabetes mellitus) Current Visit: Yes Status: Chronic Continue sliding scale (6) Hyperlipidemia Current Visit: No Status: Chronic Restarted home med - Crestor 20 Current lipid panel is normal Laboratory Tests 04/12/17 02:25 Triglycerides 87 Cholesterol 149 LDL Cholesterol, Calc 92 VLDL Cholesterol, Calc 17 HDL Cholesterol 40 Qualifiers: Hyperlipidemia type: unspecified Qualified Code(s): E78.5 - Hyperlipidemia , unspecified (7) ANA on CPAP Current Visit: Yes Status: Chronic Patient is not using CPAP while in hospital and felt more tired today. Encouraged him to continue using daily. Discussed at length and negative effects of untreated ANA given his significant cardiac history. Discussion w patient/family: The assessment and plan as outlined above was discussed with the patient and/or family members who expressed understanding and agreement. All questions were answered. Thank you for involving us in the care of your patient. Please call with any questions. Subjective Principal diagnosis: CAD Interval history: Patient is lying in bed comfortably with no new complaints today. No concerns per nursing overnight. Denies any new chest pain, shortness of breath, n/v, diaphoresis, LE edema. Objective Vital Signs, Last 4 Hours Temp Pulse Resp BP Pulse Ox 04/13/17 10:37 98.1 F 61 18 157/82 95 04/13/17 08:01 20 97 04/13/17 07:00 98.2 F 64 20 167/78 97 General: Conversant, No Apparent Distress HEENT: Atraumatic, Normocephaly, Mucus Membranes Moist Neck: No JVD, Normal carotid pulses Cardiac: Reg Rate and Rhythm, Normal S1 and S2, No Murmur Lungs: Normal Breath Sounds, No Wheeze, Rales, Rhonchi Neuro: Alert and responsive, No focal deficits noted Abdomen: Soft, Non-Tender Skin: No rashes noted on visualized skin Musculoskeletal: No Chest Wall Tenderness Extremities: No Clubbing, No Cyanosis, No Edema, Normal Pulses Results 04/13/17 03:21 04/13/17 03:21 Lab Results 04/13/17 04/13/17 03:21 03:21 WBC 11.2 H Hgb 12.6 L Hct 37.8 Plt Count 236 Sodium 138 Potassium 4.0 Chloride 106 Carbon Dioxide 23 BUN 14 Creatinine 0.83 Glucose 147 H Calcium 8.9 Total Bilirubin 0.5 AST 14 ALT 15 Alkaline Phosphatase 44 - Imaging and Cardiology Echo: report reviewed, image reviewed Cardiac cath: report reviewed (december/2016) - EKG Interpretation EKG results cardiology: personally reviewed, normal ECG - VTE Reasons for not Prescribing Prophylaxis: Not indicated-Anticoagulated or INR therapeutic Consult Discharge Plan - Plan Referrals: Paul Figueroa MD [Primary Care Provider] - 04/20/17 2:00 pm Roberta Garcia DO [Partnered Physician] - 04/18/17 4:00 pm
--- NOTE | 2017-04-13 13:28 | Discharge Summary ---
Date of Encounter: 04/13/17 Time of Encounter: 13:16 - Discharge Diagnosis (1) CAD (coronary artery disease) Priority: Primary Status: Chronic Comments: Chester Foley is a 61-year-old male with PMH CAD, hypertension, diabetes and paroxysmal atrial fibrillation presented to [facility] on 04/12/2017 with complaints of palpitations and lightheadedness. He was placed in observation status for cardiology evaluation. He was discharged home on 04/13/2017 in stable condition with outpatient follow-up 1. Paroxysmal atrial fibrillation: per hx. Presented with palpitations. Rate controlled. 04/12/2017 echo with EF 55%, diastolic dysfunction, normal left atrium size. No significant arrhythmias noted on telemetry review. Suspect known PAF as cause of palpitations. Symptoms resolved prior to discharge. Cont home BB, Xarelto. Cardiology followed. 2. CAD: History severe CAD with 5 MIs, 15 stents and CABG 3 vessel in 2002. Serial troponins negative, EKG without acute ST changes. Repeat echo with EF 55 %, diastolic dysfunction and possible inferior wall hypokinesis (12/2016 [facility] with similar hypokinesis of mid inferior and basal inferior mukherjee). Evaluated by cardiology who recommended continued medical management. Continue home ASA, Plavix, nitrate, Ranexa, Xarelto, statin, BB. Follow-up with Primary [facility] P[facility] as previously planned 3. Hypertension: Uncontrolled with SBPs in 170s on arrival. Patient reports medication compliance. BP improved with resuming home BP medication but still with SBPs in 150s. HCTZ increased. Recommend follow-up with PCP within one week for BP recheck. 4. Diabetes: per hx. uncontrolled. 01/2017 Hgb A1c 9% (previously 13% per patient). Continue home long-acting insulin. Can follow up with rn family as previously planned Qualifiers: Coronary Disease-Associated Artery/Lesion type: unspecified vessel or lesion type [place] vs. transplanted heart: [place] heart Associated angina: with unspecified angina Qualified Code(s): I25.119 - Atherosclerotic heart disease of [place] coronary artery with unspecified angina pectoris (2) Afib Priority: Primary Status: Acute Qualifiers: Atrial fibrillation type: paroxysmal Qualified Code(s): I48.0 - Paroxysmal atrial fibrillation (3) HTN (hypertension) Priority: Primary Status: Acute Qualifiers: Hypertension type: essential hypertension Qualified Code(s): I10 - Essential (primary) hypertension (4) IDDM (insulin dependent diabetes mellitus) Priority: Primary Status: Chronic - Discharge Medications Prescriptions: hydroCHLOROthiazide [Hydrochlorothiazide] 25 mg PO BID #60 tablet Home Medications: Albuterol Sulfate [Albuterol Inhaler] 2 puff IH Q4H PRN 12/30/15 [History] Aspirin [Lo-Dose Aspirin EC] 81 mg PO DAILY 12/30/15 [History] Fluticasone Propionate Nasal [Flonase] 50 mcg NS DAILY 12/30/15 [History] HYDROcodone/Acet 5/325 mg [[place] 5-325 mg] 1 tab PO Q8H PRN 12/30/15 [History] Metoprolol [Lopressor] 150 mg PO BID 12/30/15 [History] Multivitamin [Multivitamins] 1 cap PO DAILY 12/30/15 [History] Rivaroxaban [Xarelto] 20 mg PO QPM 12/30/15 [History] Clopidogrel [Plavix] 75 mg PO DAILY tab 12/29/16 [Rx] Isosorbide MONOnitrate (24 HR) [Imdur] 60 mg PO DAILY 12/29/16 [Rx] Lisinopril [Zestril] 20 mg PO DAILY tab 12/29/16 [Rx] Ranolazine [Ranexa] 1,000 mg PO BID #120 12/29/16 [Rx] Sertraline [Zoloft] 100 mg PO DAILY tab 12/29/16 [Rx] Folic Acid 1 mg PO DAILY 02/16/17 [History] Insulin Degludec [Tresiba Flextouch U-100] 45 unit SQ DAILY 02/16/17 [History] Lutein [Natural Lutein] 20 mg PO DAILY 02/16/17 [History] Melatonin [Melatin] 3 mg PO HS PRN 02/16/17 [History] [place]-3/Dha/Epa/Fish Oil [[place]-3 Fish Oil 1,000 mg Sfgl] 1,000 mg PO TID [History] diazePAM [Valium] 2 mg PO DAILY PRN 02/16/17 [History] Cholecalciferol (Vitamin D3) [Vitamin D3] 2,000 unit PO TID 04/11/17 [History] Fenofibrate Nanocrystallized [Triglide] 160 mg PO DAILY 04/11/17 [History] Insulin ASPART [Novolog Flexpen] 0 unit SQ TIDWM 04/11/17 [History] Montelukast [Singulair] 10 mg PO HS 04/11/17 [History] Nitroglycerin [Nitrostat] 0.4 mg SL Q5M PRN 04/11/17 [History] Rosuvastatin [Crestor] 20 mg PO HS 04/11/17 [History] hydroCHLOROthiazide [Hydrochlorothiazide] 25 mg PO BID #60 tablet 04/13/17 [Rx] Allergies/Adverse Reactions: 3 Allergy/AdvReac Type Severity Reaction Status Date / Time amlodipine [From Norvasc] AdvReac See Verified 12/30/15 19:09 Comments loratadine [From Claritin] AdvReac See Verified 08/11/15 10:05 Comments Procedures/tests Complete & Pending: Procedures Performed prior 72 hours Category Date Time Status ECG 12 lead ECG [ECG] AM 0600 Y 04/12/17 06:00 Completed EV echocardiogram Routine Y 04/12/17 00:54 Completed Date of admission: 04/11/17 21:55 Primary care physician: Paul Figueroa MD Consults: 04/12/17 00:57 Consult to Physician [CONS] Routine Consulting Provider: Gerald Kumari Reason for Consult: Palpitations; CAD; paroxysmal atrial fibrillation Call Completed: No Discharging clinician: Sherri Franco Anticipated date of discharge: 04/13/17 - Patient Status Disposition: Home, Self-Care Condition: Good Overall status at discharge: patient is back to baseline - Discharge Instructions Instructions: Atrial Fibrillation (DC), Coronary Artery Disease (DC), Chronic Hypertension (DC) Follow Up With: Paul Figueroa MD [Primary Care Provider] - 04/20/17 2:00 pm Roberta Garcia DO [Partnered Physician] - 04/18/17 4:00 pm Forms: ED Satisfaction Letter - Diet and Activity Activity: increase activity as tolerated Diet: diabetic diet, low fat, low cholesterol Interval History: Seen and examined at bedside, patient says he feels better today and wants to go home. Says he slept well last night. No further palpitations or lightheadedness. No CP, no SOB Hospital course: See assessment and plan for hospital course - Time Spent with Patient Total time spent providing and/or coordinating discharge services: - Constitutional Vitals: Temp Pulse Resp BP Pulse Ox 98.1 F 61 18 157/82 95 04/13/17 10:37 04/13/17 10:37 04/13/17 11:06 04/13/17 10:37 04/13/17 11:06 General appearance: Present: cooperative, A&O X 3, pleasant, no acute distress - Head Head exam: Present: atraumatic, normocephalic - Eye Eye exam: Present: PERRL, conjuntiva pink, sclera anicteric Pupils: Present: PERRL - Neck Neck exam general surgery: Present: supple, trachea midline. Absent: lymphadenopathy - Respiratory Respiratory exam: Present: CTAB. Absent: accessory muscle use, rales, rhonchi, wheezes - Cardiovascular Cardiovascular exam: Present: RRR, +S1, +S2. Absent: diastolic murmur, gallop, rubs, systolic murmur - GI/Abdominal GI/Abdominal exam: Present: normal bowel sounds, soft, no peritoneal signs. Absent: distended, tenderness - Extremities Exam Extremities exam: Present: warm, radial pulses palpable and symmetrical. Absent : calf tenderness, cyanotic, pedal edema - Neurological Exam Neurological exam: Present: CN II-XII intact, oriented X3, no focal deficits. Absent: pronater drift, facial droop, speech deficit - Skin Skin exam: Present: dry, intact - VTE Reasons for not Prescribing Prophylaxis: Not indicated-Anticoagulated or INR therapeutic
--- NOTE | 2017-04-13 13:47 | Discharge Summary ---
Date of Encounter: 04/13/17 Time of Encounter: 13:45 - Discharge Diagnosis (1) CAD (coronary artery disease) Priority: Primary Status: Acute Comments: Chester Foley is a 61-year-old male with PMH CAD, hypertension, diabetes and paroxysmal atrial fibrillation presented to [facility] on 04/12/2017 with complaints of palpitations and lightheadedness. He was placed in observation status for cardiology evaluation. He was discharged home on 04/13/2017 in stable condition with outpatient follow-up 1. Paroxysmal atrial fibrillation: per hx. Presented with palpitations. Rate controlled. 04/12/2017 echo with EF 55%, diastolic dysfunction, normal left atrium size. No significant arrhythmias noted on telemetry review. Suspect known PAF as cause of palpitations. Symptoms resolved prior to discharge. Cont home BB, Xarelto. Cardiology followed. 2. CAD: History severe CAD with 5 MIs, 15 stents and CABG 3 vessel in 2002. Serial troponins negative, EKG without acute ST changes. Repeat echo with EF 55 %, diastolic dysfunction and possible inferior wall hypokinesis (12/2016 [facility] with similar hypokinesis of mid inferior and basal inferior mukherjee). Evaluated by cardiology who recommended continued medical management. Continue home ASA, Plavix, nitrate, Ranexa, Xarelto, statin, BB, ELIZABETH. Follow-up with Primary Clinical Support Associate as previously planned 3. Hypertension: Uncontrolled with SBPs in 170s on arrival. Patient reports medication compliance. BP improved with resuming home BP medication but still with SBPs in 150s. Home ELIZABETH increased per Cardiology. Recommend follow-up with PCP within one week for BP recheck. 4. Diabetes: per hx. uncontrolled. 01/2017 Hgb A1c 9% (previously 13% per patient). Continue home long-acting insulin. Can follow up with driver's education instructor as previously planned Qualifiers: Coronary Disease-Associated Artery/Lesion type: unspecified vessel or lesion type Hoh vs. transplanted heart: [place] heart Associated angina: with unspecified angina Qualified Code(s): I25.119 - Atherosclerotic heart disease of [place] coronary artery with unspecified angina pectoris (2) Afib Priority: Primary Status: Acute Qualifiers: Atrial fibrillation type: paroxysmal Qualified Code(s): I48.0 - Paroxysmal atrial fibrillation (3) HTN (hypertension) Priority: Primary Status: Acute Qualifiers: Hypertension type: essential hypertension Qualified Code(s): I10 - Essential (primary) hypertension (4) IDDM (insulin dependent diabetes mellitus) Priority: Primary Status: Chronic - Discharge Medications Prescriptions: hydroCHLOROthiazide [Hydrochlorothiazide] 25 mg PO BID #60 tablet Lisinopril [Zestril] 40 mg PO DAILY #30 tab Home Medications: Albuterol Sulfate [Albuterol Inhaler] 2 puff IH Q4H PRN 12/30/15 [History] Aspirin [Lo-Dose Aspirin EC] 81 mg PO DAILY 12/30/15 [History] Fluticasone Propionate Nasal [Flonase] 50 mcg NS DAILY 12/30/15 [History] HYDROcodone/Acet 5/325 mg [[place] 5-325 mg] 1 tab PO Q8H PRN 12/30/15 [History] Metoprolol [Lopressor] 150 mg PO BID 12/30/15 [History] Multivitamin [Multivitamins] 1 cap PO DAILY 12/30/15 [History] Rivaroxaban [Xarelto] 20 mg PO QPM 12/30/15 [History] Clopidogrel [Plavix] 75 mg PO DAILY tab 12/29/16 [Rx] Isosorbide MONOnitrate (24 HR) [Imdur] 60 mg PO DAILY 12/29/16 [Rx] Ranolazine [Ranexa] 1,000 mg PO BID #120 12/29/16 [Rx] Sertraline [Zoloft] 100 mg PO DAILY tab 12/29/16 [Rx] Folic Acid 1 mg PO DAILY 02/16/17 [History] Insulin Degludec [Tresiba Flextouch U-100] 45 unit SQ DAILY 02/16/17 [History] Lutein [Natural Lutein] 20 mg PO DAILY 02/16/17 [History] Melatonin [Melatin] 3 mg PO HS PRN 02/16/17 [History] [place]-3/Dha/Epa/Fish Oil [[place]-3 Fish Oil 1,000 mg Sfgl] 1,000 mg PO TID [History] diazePAM [Valium] 2 mg PO DAILY PRN 02/16/17 [History] Cholecalciferol (Vitamin D3) [Vitamin D3] 2,000 unit PO TID 04/11/17 [History] Fenofibrate Nanocrystallized [Triglide] 160 mg PO DAILY 04/11/17 [History] Insulin ASPART [Novolog Flexpen] 0 unit SQ TIDWM 04/11/17 [History] Montelukast [Singulair] 10 mg PO HS 04/11/17 [History] Nitroglycerin [Nitrostat] 0.4 mg SL Q5M PRN 04/11/17 [History] Rosuvastatin [Crestor] 20 mg PO HS 04/11/17 [History] Lisinopril [Zestril] 40 mg PO DAILY #30 tab 04/13/17 [Rx] hydroCHLOROthiazide [Hydrochlorothiazide] 25 mg PO DAILY #30 tablet 04/13/17 [Rx ] Allergies/Adverse Reactions: 3 Allergy/AdvReac Type Severity Reaction Status Date / Time amlodipine [From Norvasc] AdvReac See Verified 12/30/15 19:09 Comments loratadine [From Claritin] AdvReac See Verified 08/11/15 10:05 Comments Procedures/tests Complete & Pending: Procedures Performed prior 72 hours Category Date Time Status ECG 12 lead ECG [ECG] AM 0600 Y 04/12/17 06:00 Completed EV echocardiogram Routine Y 04/12/17 00:54 Completed Date of admission: 04/11/17 21:55 Primary care physician: Paul Figueroa MD Consults: 04/12/17 00:57 Consult to Physician [CONS] Routine Consulting Provider: Gerald Kumari Reason for Consult: Palpitations; CAD; paroxysmal atrial fibrillation Call Completed: No Discharging clinician: Sherri Franco Anticipated date of discharge: 04/13/17 - Patient Status Disposition: Home, Self-Care Condition: Good Functional capacity at discharge: independent ambulation Overall status at discharge: patient is back to baseline - Discharge Instructions Instructions: Coronary Artery Disease (DC), Atrial Fibrillation (DC), Chronic Hypertension (DC) Follow Up With: Paul Figueroa MD [Primary Care Provider] - 04/20/17 2:00 pm Roberta Garcia DO [Partnered Physician] - 04/18/17 4:00 pm Forms: ED Satisfaction Letter - Diet and Activity Activity: increase activity as tolerated Diet: diabetic diet, low fat, low cholesterol Interval History: Seen and examined at bedside. Patient said he feels better today and wants to go home. Says he slept well. No further palpitation or lightheadedness recurrence. Denies chest pain, no shortness of breath. Hospital course: See assessment and plan for hospital course - Time Spent with Patient Total time spent providing and/or coordinating discharge services: - Constitutional Vitals: Temp Pulse Resp BP Pulse Ox 98.1 F 61 18 157/82 95 04/13/17 10:37 04/13/17 10:37 04/13/17 11:06 04/13/17 10:37 04/13/17 11:06 General appearance: Present: cooperative, A&O X 3, pleasant, no acute distress - Head Head exam: Present: atraumatic, normocephalic - Eye Eye exam: Present: PERRL, conjuntiva pink, sclera anicteric Pupils: Present: PERRL - Neck Neck exam general surgery: Present: supple, trachea midline. Absent: lymphadenopathy - Respiratory Respiratory exam: Present: CTAB. Absent: accessory muscle use, rales, rhonchi, wheezes - Cardiovascular Cardiovascular exam: Present: RRR, +S1, +S2. Absent: diastolic murmur, gallop, rubs, systolic murmur - GI/Abdominal GI/Abdominal exam: Present: normal bowel sounds, soft, no peritoneal signs. Absent: distended, tenderness - Extremities Exam Extremities exam: Present: warm, radial pulses palpable and symmetrical. Absent : calf tenderness, cyanotic, pedal edema - Neurological Exam Neurological exam: Present: CN II-XII intact, oriented X3, no focal deficits. Absent: pronater drift, facial droop, speech deficit - Skin Skin exam: Present: dry, intact - VTE Reasons for not Prescribing Prophylaxis: Not indicated-Anticoagulated or INR therapeutic
== END 2017-04-13 14:17 | disposition home or self-care (01) ==
LOC: 3BNU 19:59 → EMEROO 19:59 → 3BNU 22:29
PROVIDERS: ADMIT Pediatrics; ATTEND Registered Nurse

== ENCOUNTER 2019-04-09 03:14 | Observation (INO) ==
[2019-04-09] MEDS ORDERED: Naloxone 0.4 MG/ML INJ IVP PRN (07:43)
[2019-04-09] MEDS ORDERED: Ondansetron 4 MG/2 ML VIAL IVP PRN (07:43)
[2019-04-09] MEDS ORDERED: Nitroglycerin 0.4 MG TAB.SUBL SL PRN (07:45)
[2019-04-09] MEDS ORDERED: Melatonin 3 MG TABLET PO PRN (07:45)
[2019-04-09] MEDS ORDERED: diazePAM 2 MG TABLET PO PRN (07:45)
[2019-04-09] MEDS ORDERED: *HR* Dextrose 50 % in Water (Syg) 50 ML SYRINGE IVP PRN (07:47)
[2019-04-09] MEDS ORDERED: Dextrose Gel 15 GM/37.5 ML TUBE PO PRN ×2 (07:47)
[2019-04-09] MEDS ORDERED: D5% in Water 1,000 ML IVC PRN (07:47)
[2019-04-09] MEDS ORDERED: Isosorbide MONOnitrate (24 HR) 60 MG TAB.ER.24H PO SCH (09:00)
[2019-04-09] MEDS: Lisinopril 20 MG TABLET PO SCH (09:12)
[2019-04-09] MEDS: Insulin LISPRO 300 UNITS/3 ML VIAL SQ SCH ×2 (12:33→17:32)
[2019-04-09] MEDS: Metoprolol XL (24 HR) Succ 25 MG TAB.ER.24H PO SCH (12:41)
[2019-04-09] MEDS ORDERED: *HR* Heparin 5,000 UNIT/ML VIAL IVP PRN ×4 (14:00→14:22)
[2019-04-09] MEDS ORDERED: Heparin 25,000 UNIT/250 ML D5W 25,000 UNIT/250 ML IV.SOLN IVC SCH (14:00)
[2019-04-09 14:32] LABS: Basophils # 0.1 K/mcL (0.0-0.2); Basophils % 0.6 %; Eosinophils # 0.3 K/mcL (0.0-0.6); Eosinophils % 2.8 %; Hemoglobin 13.5 g/dL (12.9-16.9); Immature Granulocytes % 0.3 % (0-4); Lymphocytes # 1.9 K/mcL (0.6-4.6); Lymphocytes % 20.3 %; Mean Corpuscular HGB Conc 31.4 g/dL (31.6-35.5); Mean Corpuscular Hemoglobin 29.1 pg (28.0-33.3); Mean Corpuscular Volume 92.7 fL (83.0-100.0); Mean Platelet Volume 10.5 fL (9.4-12.4); Monocytes # 0.7 K/mcL (0.0-1.3); Monocytes % 7.5 %; Neutrophils # 6.4 K/mcL (1.6-8.9); Platelet Count 249 K/mcL (140-400); Red Blood Count 4.64 M/mcL (4.19-5.50); Red Cell Distribution Width 14.6 % (11.5-14.5); Segmented Neutrophils % 68.5 %; White Blood Count 9.4 K/mcL (4.3-11.1)
[2019-04-09 14:45] LABS: BUN/Creatinine Ratio 21 (6-26); Blood Urea Nitrogen 15 mg/dL (8-23); Calcium 8.4 mg/dL (8.6-10.3); Carbon Dioxide 23 mEq/L (23-29); Chloride 105 mEq/L (98-107); Glucose 90 mg/dL (70-105); Osmolality,Calculated 282 (280-300); Potassium 4.1 mEq/L (3.5-5.1); Sodium 136 mEq/L (136-145); eGFR For African Americans > 60 (> 60); eGFR For Non-African Americans > 60 (> 60)
[2019-04-09] MEDS: Heparin 25,000 UNIT/250 ML D5W 25,000 UNIT/250 ML IV.SOLN IVC SCH (16:41)
[2019-04-09 17:10] LABS: INR 1.7; Prothrombin Time 19.1 Seconds (9.4-12.1)
[2019-04-09] MEDS: Isosorbide MONOnitrate (24 HR) 60 MG TAB.ER.24H PO SCH (17:31)
[2019-04-09] MEDS ORDERED: *HR* Rivaroxaban 10 MG TABLET PO SCH (18:00)
[2019-04-09] MEDS ORDERED: Perflutren Lipid Microsphere 1.3 ML in 0.9 % Sodium Chloride 8.7 ML IVP ONE (19:21)
[2019-04-09] MEDS: Melatonin 3 MG TABLET PO SCH (20:48)
[2019-04-09] MEDS: Ranolazine 500 MG TAB.ER.12H PO SCH (20:48)
[2019-04-09] MEDS: Metoprolol XL (24 HR) Succ 50 MG TAB.ER.24H PO SCH (20:48)
[2019-04-09] MEDS: Insulin DETEMIR 100 UNIT/ML X5UNITS SQ SCH (21:41)
[2019-04-10] MEDS: Insulin LISPRO 300 UNITS/3 ML VIAL SQ SCH ×4 (00:20→17:18)
[2019-04-10] MEDS: Ranolazine 500 MG TAB.ER.12H PO SCH ×2 (08:42→21:07)
[2019-04-10] MEDS: Isosorbide MONOnitrate (24 HR) 30 MG TAB.ER.24H PO SCH (08:42)
[2019-04-10] MEDS: Metoprolol XL (24 HR) Succ 50 MG TAB.ER.24H PO SCH ×2 (08:42→21:08)
[2019-04-10] MEDS: Lisinopril 20 MG TABLET PO SCH (08:42)
[2019-04-10] MEDS ORDERED: Isosorbide MONOnitrate (24 HR) 60 MG TAB.ER.24H PO SCH (09:00)
[2019-04-10] MEDS: Metoprolol XL (24 HR) Succ 25 MG TAB.ER.24H PO SCH (12:18)
[2019-04-10] MEDS ORDERED: Heparin 1,000 UNITS/500 mL 500 ML ONE (14:59)
[2019-04-10] MEDS ORDERED: 0.9 % Sodium Chloride 2,000 ML ONE (14:59)
[2019-04-10] MEDS ORDERED: *HR* Heparin 10,000 UNIT/10 ML VIAL ONE (15:00)
[2019-04-10] MEDS ORDERED: ISOVUE-370 200 ML INFUS..BTL ONE (15:00)
[2019-04-10] MEDS ORDERED: Nitroglycerin 1,000 MCG/10 ML VIAL IV ONE (15:00)
[2019-04-10] MEDS ORDERED: *HR* Midazolam HCl 2 MG/2 ML VIAL ONE (15:04)
[2019-04-10] MEDS ORDERED: *HR* FentaNYL (PF) 100 MCG/2 ML VIAL ONE (15:04)
[2019-04-10] MEDS ORDERED: Nitroglycerin Spray 4.9 GM BOTTLE ONE (15:45)
[2019-04-10] MEDS ORDERED: *HR* Labetalol 100 MG/20 ML MDV ONE (15:46)
[2019-04-10] MEDS: Isosorbide MONOnitrate (24 HR) 60 MG TAB.ER.24H PO SCH (17:18)
[2019-04-10] MEDS: Heparin 25,000 UNIT/250 ML D5W 25,000 UNIT/250 ML IV.SOLN IVC SCH (17:19)
[2019-04-10] MEDS: Melatonin 3 MG TABLET PO SCH (21:07)
[2019-04-10] MEDS: Insulin DETEMIR 100 UNIT/ML X5UNITS SQ SCH (21:08)
[2019-04-11] MEDS: Isosorbide MONOnitrate (24 HR) 30 MG TAB.ER.24H PO SCH (09:04)
[2019-04-11] MEDS: Metoprolol XL (24 HR) Succ 50 MG TAB.ER.24H PO SCH (09:05)
[2019-04-11] MEDS: Lisinopril 20 MG TABLET PO SCH (09:05)
[2019-04-11] MEDS: Ranolazine 500 MG TAB.ER.12H PO SCH (09:05)
[2019-04-11] MEDS: Insulin LISPRO 300 UNITS/3 ML VIAL SQ SCH ×2 (09:06→12:31)
[2019-04-11] MEDS ORDERED: *HR* Rivaroxaban 10 MG TABLET PO SCH ×2 (11:07→17:00)
[2019-04-11 11:48] VITALS: BP 154/90
[2019-04-11] MEDS ORDERED: FLU Vac QV 19-20 (6Month+)/PF 0.5 ML SYRINGE IM ONE (12:29)
[2019-04-11] MEDS: Metoprolol XL (24 HR) Succ 25 MG TAB.ER.24H PO SCH (12:30)
== END 2019-04-11 14:58 | disposition home or self-care (01) ==
LOC: CDU → SUATTDRO 05:53 → 2ANU 13:40
PROVIDERS: ADMIT Internal Medicine; ATTEND Internal Medicine